=== PATIENT | male | born 1945 | race Caucasian/White ===

== ENCOUNTER → 2017-11-18 15:37 | Outpatient (CLI) | payer MEDICARE, OTHER, SELFPAY ==
[2017-11-18 17:05] LABS: Appearance Urine UA CLEAR; Bilirubin Urine UA NEGATIVE (NEGATIVE); Color Urine UA YELLOW; Glucose Urine UA NEGATIVE (Normal); Ketones Urine UA NEGATIVE (NEGATIVE); Leukocyte Esterase Urine UA 1+ (NEGATIVE); Nitrite Urine UA NEGATIVE (NEGATIVE); Occult Blood Urine UA 1+ (Negative); Protein Urine UA 1+ (Negative); Specific Gravity Urine UA 1.025 (1.000-1.035); Urobilinogen Urine UA 0.2 E.U./dL (0.2); pH Urine UA 5.5 (4.5-8.0)
[2017-11-18 17:25] LABS: Bacteria Urine Occasional (0-1); RBC Urine 5-10/HPF (0-5/HPF); Squamous Epithelial Cell Urine None Seen; WBC Urine 10-30/HPF (0-5/HPF)
== END ==
PROVIDERS: Family Provider Family Medicine; PCP Family Medicine; Visit Provider Family Medicine
DX: R30.0 Dysuria (principal)
CPT/HCPCS: 81001

== ENCOUNTER → 2017-12-16 15:01 | Outpatient (CLI) | payer MEDICARE, OTHER, SELFPAY ==
[2017-12-16 15:46] LABS: Add Manual Diff / Slide Review NO; Basophils Percent Auto 0.8 % (0-2); Hematocrit 42.6 % (41-53); Hemoglobin 14.6 g/dL (13.5-17.5); Lymphocytes Percent Auto 15.7 % (25-40); Mean Corpuscular HGB Conc 34.2 % (30-36); Mean Corpuscular Hemoglobin 31.5 PG (26-34); Mean Corpuscular Volume 92.2 fL (80-100); Monocytes Percent Auto 5.5 % (3-14); Neutrophils Absolute Auto 6100 /uL (3000-5900); Platelet Count 231 X10^3/uL (150-400); Red Blood Cell Count 4.62 X10^6/uL (4.5-5.9); Red Cell Distribution Width 14.2 % (11.6-14.8); White Blood Cell Count 8.1 X10^3/uL (4.5-11.0)
[2017-12-16 17:31] LABS: Alanine Aminotransferase 46 IU/L (21-72); Albumin Globulin Ratio 1.4 (1.0-2.8); Alkaline Phosphatase 67 U/L (38-126); Aspartate Aminotransferase 39 IU/L (17-59); BUN Creatinine Ratio 25.7 (6-22); Bilirubin Total 0.6 mg/dL (0.2-1.3); Blood Urea Nitrogen 18 mg/dL (9-20); Calcium 9.5 mg/dL (8.4-10.2); Carbon Dioxide 28 mmol/L (22-32); Chloride 104 mmol/L (98-107); Estimated Glomerular Filt Rate > 60.0 mL/min (>60); Globulin 2.8 g/dL (1.7-4.1); Glucose 101 mg/dL (80-110); HEMOLYSIS < 15 (0-50); Potassium 4.6 mmol/L (3.4-5.1); Sodium 143 mmol/L (137-145); Total Protein 6.8 g/dL (6.3-8.2)
[2017-12-16 18:00] LABS: TSH w/ Reflex to FT4 1.14 uIU/mL (0.47-4.68)
[2017-12-20 14:28] LABS: Parathyroid Hormone Int 31 pg/mL (14-64)
== END ==
PROVIDERS: Family Provider Family Medicine; PCP Family Medicine; Visit Provider Family Medicine
DX: R63.4 Abnormal weight loss (principal)
CPT/HCPCS: 36415; 80053; 83970; 84443; 85025

== ENCOUNTER → 2017-12-29 11:11 | Outpatient (CLI) | payer MEDICARE, OTHER, SELFPAY ==
--- NOTE | 2017-12-29 12:12 | DI.CT.S_ITS ---
PROCEDURE: CT CHEST ABD PEL W CON INDICATIONS: 72-year-old male with weight loss and remote gastric outlet obstruction. TECHNIQUE: After the administration of oral and intravenous contrast, 5 mm thick sections acquired from the lung apices to the symphysis. 5 mm coronal and sagittal reformats were performed, with additional 7 mm coronal MIP reformats through the lungs. For radiation dose reduction, the following was used: automated exposure control, adjustment of mA and/or kV according to patient size. COMPARISON: [facility], CR, XR CERVICAL SPINE 2 OR 3 VIEWS, 10/20/2017, 11:21. FINDINGS: Image quality: Metallic streak artifact from bilateral shoulder and right hip arthroplasty hardware, as well as cervical and lumbar spine fixation hardware, left chest wall pulse generator, obscure adjacent bony and soft tissue structures. CHEST: Lungs and pleura: No acute airspace opacities. No pleural effusions or pneumothorax. Central and peripheral airways appear patent and normal in caliber. Mediastinum: Heart size is normal, with moderate coronary artery atherosclerosis. No pericardial effusion. No mediastinal or hilar adenopathy by size criteria. Thoracic aorta and central pulmonary arteries are normal in size. Esophagus is normal in caliber. No hiatal hernia. Chest wall: No axillary or supraclavicular adenopathy by size criteria. Patient is status post multilevel cervical spine discectomies with anterior fixation. Lower end of the fixation plate is broken and posteriorly angulated. ABDOMEN: Solid organs: Liver is normal in size and enhancement. Gallbladder wall thickness is normal. Biliary system is non dilated. Pancreas enhances normally. Spleen is normal in size and enhancement. No adrenal nodules. Kidneys demonstrate normal size and enhancement, with mild left hydronephrosis. On axial image 108, 3 mm distal left ureteral stone is present. 3 nonobstructing right renal stones are also present, measuring up to 8 mm. Peritoneum and bowel: Bowel loops demonstrate normal wall thickness and caliber. No free fluid or air. Nodes and vessels: No retroperitoneal or mesenteric adenopathy by size criteria. Aorta and inferior vena cava are normal in size. Miscellaneous: No ventral hernias. PELVIS: Genitourinary: Bladder wall thickness is normal. Prostate gland is normal in size. Miscellaneous: No inguinal hernias or adenopathy. Bones: No suspicious bony lesions. No vertebral body compression fractures. There is multilevel lumbar and lower thoracic spine disc degeneration, status post L2-L5 discectomies with interbody fusion, L3-L5 bilateral posterior fixation, and L2-L4 laminectomies. Medial right iliac wing bone graft donor site is present. Patient is status post right hip arthroplasty. IMPRESSION: 1. No imaging explanation for weight loss. 2. 3 mm distal left ureteral stone causes mild left hydroureteronephrosis. 3. 3 additional nonobstructing renal stones measure up to 8 mm. 4. Inferior end of the cervical spine anterior fixation plate is broken as before. Dictated by: Baljit Martinez M.D. on 12/29/2017 at 13:05 Approved by: Baljit Martinez M.D. on 12/29/2017 at 13:41
== END ==
PROVIDERS: Family Provider Family Medicine; PCP Family Medicine; Visit Provider Family Medicine
DX: R63.4 Abnormal weight loss (principal); N13.2 Hydronephrosis with renal and ureteral calculous obstruction; N20.2 Calculus of kidney with calculus of ureter
CPT/HCPCS: 71260; 74177; Q9967

== ENCOUNTER → 2018-01-05 10:33 | Outpatient (CLI) | payer MEDICARE, OTHER, SELFPAY ==
--- NOTE | 2018-01-05 10:41 | DI.US.S_ITS ---
PROCEDURE: US CAROTID DOPPLER BI INDICATIONS: BALANCE DISORDER, WORD FINDING DIFFICULTY TECHNIQUE: Color and pulse Doppler interrogation was performed of both carotid systems, with image documentation and velocity measurements. COMPARISON: [facility], , CAROTID ARTERY DOPPLER [facility], 04/27/2016, 11:01. FINDINGS: Stenosis calculations are based on SRU (Society of Radiologists in Ultrasound) criteria. Right side: Brachial blood pressure: 151/69 mm Hg. Common carotid artery peak systolic velocity: 76 cm/sec. Internal carotid artery peak systolic velocity: 92 cm/sec. Internal carotid artery end diastolic velocity: 36 cm/sec. External carotid artery peak systolic velocity: 111 cm/sec. ICA/CCA peak systolic ratio: 1.2. Deleon scale imaging description: Moderate scattered plaque. Percent internal carotid artery stenosis: Less than 50%. Vertebral artery: Flow direction is antegrade. Left side: Brachial blood pressure: 141/77 mm Hg. Common carotid artery peak systolic velocity: 67 cm/sec. Internal carotid artery peak systolic velocity: 141 cm/sec. Internal carotid artery end diastolic velocity: 49 cm/sec. External carotid artery peak systolic velocity: 127 cm/sec. ICA/CCA peak systolic ratio: 2.1. Deleon scale imaging description: Moderate scattered plaque. Percent internal carotid artery stenosis: 50-69% stenosis. Vertebral artery: Flow direction is antegrade. IMPRESSION: 1. Mild progression of 50-69% left internal carotid artery stenosis. 2. No change in less than 50% right internal carotid artery stenosis. Dictated by: Gregorio Orr [facility] Interpreted: Deandre You MD on 01/05/2018 at 12:11 Approved by: Deandre You M.D. on 01/05/2018 at 13:27
== END ==
PROVIDERS: Family Provider Family Medicine; PCP Family Medicine; Visit Provider Family Medicine
DX: R26.89 Other abnormalities of gait and mobility (principal); R47.89 Other speech disturbances
CPT/HCPCS: 93880

== ENCOUNTER → 2018-02-23 15:19 | Outpatient (CLI) | payer MEDICARE, OTHER, SELFPAY ==
--- NOTE | 2018-02-23 15:23 | DI.RAD.S_ITS ---
PROCEDURE: XR CHEST 2V INDICATIONS: shortness of breath TECHNIQUE: 2 views of the chest were acquired. COMPARISON: [facility], CR, XR CHEST 1 VIEW, 01/25/2018, 21:46. FINDINGS: Surgical changes and devices: Bilateral humeral prosthesis, permanent pacemaker, postoperative changes upper lumbar spine and lower cervical spine as before. Lungs and pleura: No pleural effusions or pneumothorax. Lungs are clear. Mediastinum: Mediastinal contours are normal. Heart size is normal. Bones and chest wall: No suspicious bony abnormalities. Soft tissues appear unremarkable. IMPRESSION: No acute cardiopulmonary abnormality. Dictated by: Ryan Reno M.D. on 02/23/2018 at 16:49 Approved by: Ryan Reno M.D. on 02/23/2018 at 16:50
== END ==
PROVIDERS: Family Provider Family Medicine; PCP Family Medicine; Visit Provider Family Medicine
DX: R06.02 Shortness of breath (principal)
CPT/HCPCS: 71046

== ENCOUNTER → 2018-05-16 09:28 | Outpatient (CLI) | payer MEDICARE, OTHER, SELFPAY ==
[2018-05-16 10:45] LABS: Blood Urea Nitrogen 14 mg/dL (9-20); Carbon Dioxide 29 mmol/L (22-32); Chloride 104 mmol/L (98-107); Estimated Glomerular Filt Rate > 60.0 mL/min (>60); Glucose 99 mg/dL (80-110); HEMOLYSIS < 15 (0-50); Potassium 3.9 mmol/L (3.4-5.1); Sodium 143 mmol/L (137-145)
== END ==
PROVIDERS: PCP Student in an Organized Health Care Education/Training Program; Visit Provider Urology
DX: R31.0 Gross hematuria (principal)
CPT/HCPCS: 36415; 80048

== ENCOUNTER → 2018-05-29 09:34 | Outpatient (CLI) | payer MEDICARE, OTHER, SELFPAY ==
--- NOTE | 2018-05-29 09:36 | DI.NM.S_ITS ---
PROCEDURE: NM GASTRIC EMPTYING STUDY RADIOPHARMACEUTICAL: 1.0 mCi Tc-99m sulfur colloid in an egg sandwich. INDICATIONS: Gastroparesis TECHNIQUE: A Tc-99m labeled sulfur colloid labeled egg sandwich or oatmeal was served to the patient. Anterior and posterior planar images of the abdomen were obtained at 0 minutes and 30 minutes, then at hourly intervals up to 4 hours. The patient was upright and ambulating during the interval. COMPARISON: None. FINDINGS: The stomach has normal size, morphology, and position. There is normal emptying of solid gastric contents from the stomach by visual inspection. No gastroesophageal reflux is visualized. The percentage of tracer retained at specific time points are as follows: Time point Percent gastric retention Normal range 30 minutes 66% 70% or more 1 hour 43% 30% to 90% 2 hours 16% 60% or less 3 hours under 1% 30% or less IMPRESSION: No sign of abnormal gastric isotope retention over the course of the study. Dictated by: Fidencio Albert M.D. on 05/29/2018 at 14:32 Approved by: Fidencio Albert M.D. on 05/29/2018 at 14:34
== END ==
PROVIDERS: PCP Student in an Organized Health Care Education/Training Program; Visit Provider Student in an Organized Health Care Education/Training Program
DX: K31.84 Gastroparesis (principal)
CPT/HCPCS: 78264; A9541

== ENCOUNTER → 2018-05-30 10:42 | Outpatient (CLI) | payer MEDICARE, OTHER, SELFPAY ==
--- NOTE | 2018-05-30 | DI.CT.S_ITS ---
PROCEDURE: CT ABDOMEN PELVIS WO/W CON INDICATIONS: GROSS HEMATURIA TECHNIQUE: Optional 5 mm thick noncontrast images acquired from the diaphragm to the symphysis pubis. After the administration of intravenous contrast, 5 mm thick images acquired from the diaphragm to the symphysis pubis after a 10-minute delay. 2 mm thick coronal and sagittal reformats were then performed of the kidneys and ureters. For radiation dose reduction, the following was used: automated exposure control, adjustment of mA and/or kV according to patient size. COMPARISON: None. FINDINGS: Image quality: Excellent. Lung bases: Lung bases are clear. Heart size is normal. Urinary system: Both kidneys are normal size. There are multiple nonobstructing calculi within the bilateral kidneys. The largest right stone measures 9 mm in diameter in the upper pole and the largest left stone measures 5 mm in the lower pole. No right hydronephrosis or perinephric fat stranding. There is mild left hydronephrosis and the left ureter is moderately dilated. Multiple 1-3 mm diameter calculi are present within the left ureter. There is likely a 1 mm calculus within the left ureterovesicular junction (series 2, image 60). No right ureteral calculi visualized. The bladder is partially fluid-filled. The post contrast study suggests a posterior left bladder mass versus inflammatory thickening at the left ureterovesicular junction (series 4, image 167). Other solid organs: Liver is normal in size and enhancement. Gallbladder is unremarkable. Biliary system is non dilated. Pancreas enhances normally. Spleen is normal in size and enhancement. No adrenal nodules. Peritoneum and bowel: Bowel loops demonstrate normal wall thickness and caliber. No free fluid or air. Nodes and vessels: No retroperitoneal or mesenteric adenopathy by size criteria. Aorta and inferior vena cava are normal in size. There are scattered atheromatous calcifications throughout the aorta and iliac arteries bilaterally. Abdominal wall: No ventral hernias. Pelvis: No pathologic free pelvic fluid. No inguinal hernias or adenopathy. Bones: No suspicious bony lesions. No vertebral body compression fractures. The severe degenerative change in posterior fixation is noted at the lumbosacral junction. Right hip arthroplasty is grossly intact. IMPRESSION: 1. Bilateral nephrolithiasis. 2. Multiple calculi within the left ureter with moderate hydroureter and mild hydronephrosis. 3. Questionable mass at the left ureterovesicular junction versus inflammatory changes as described above. Direct visualization recommended to exclude neoplasm. Dictated by: Kalyani Clark M.D. on 05/30/2018 at 14:02 Approved by: Kalyani Clark M.D. on 05/30/2018 at 14:15
== END ==
PROVIDERS: PCP Student in an Organized Health Care Education/Training Program; Visit Provider Urology
DX: N13.2 Hydronephrosis with renal and ureteral calculous obstruction (principal); R31.0 Gross hematuria
CPT/HCPCS: 74178; Q9967

== ENCOUNTER → 2018-09-13 10:32 | Outpatient (CLI) | payer MEDICARE, OTHER, SELFPAY ==
--- NOTE | 2018-09-13 | DI.US.S_ITS ---
PROCEDURE: US RENAL COMPLETE INDICATIONS: LEFT KIDNEY STONE TECHNIQUE: Real-time scanning was performed of the kidneys and bladder, with image documentation. COMPARISON: [facility], CT, CT ABDOMEN PELVIS WO/W CON, 05/30/2018, 10:49. FINDINGS: Kidneys: Right kidney: Normal in size,, measuring 11.2 cm. There are 3 stones identified. The largest stone measures 1.5 x 0.7 x 1.0 cm. No stone is obstructing. No hydronephrosis. No suspicious solid mass lesions. Right kidney: Normal size, 9.6 cm. No hydronephrosis. 4 nonobstructing stones seen. The largest stone identified is 0.9 x 0.9 x 1.0 cm. No suspicious solid masses. Bladder: Decompressed. Miscellaneous: No free pelvic fluid. IMPRESSION: Multiple bilateral nonobstructing renal stones as described above. No hydronephrosis. Dictated by: Shantanu Frank M.D. on 09/13/2018 at 12:41 Approved by: Shantanu Frank M.D. on 09/13/2018 at 12:46
== END ==
PROVIDERS: PCP Student in an Organized Health Care Education/Training Program; Visit Provider Urology
DX: N20.0 Calculus of kidney (principal)
CPT/HCPCS: 76770

== ENCOUNTER → 2018-09-19 09:22 | Outpatient (CLI) | payer MEDICARE, OTHER, SELFPAY ==
--- NOTE | 2018-09-19 | DI.US.S_ITS ---
PROCEDURE: US CAROTID DOPPLER BI INDICATIONS: BILATERAL CAROTID ARTERY STENOSIS TECHNIQUE: Color and pulse Doppler interrogation was performed of both carotid systems, with image documentation and velocity measurements. COMPARISON: [facility], US, US CAROTID DOPPLER BI, 01/05/2018, 11:23. FINDINGS: Stenosis calculations are based on SRU (Society of Radiologists in Ultrasound) criteria. Right side: Brachial blood pressure: 142/79 mm Hg. Common carotid artery peak systolic velocity: 61 cm/sec. Internal carotid artery peak systolic velocity: 76 cm/sec. Internal carotid artery end diastolic velocity: 26 cm/sec. External carotid artery peak systolic velocity: 75 cm/sec. ICA/CCA peak systolic ratio: 1.2. Deleon scale imaging description: Mild scattered plaque. Percent internal carotid artery stenosis: Less than 50% stenosis. Vertebral artery: Flow direction is antegrade. Left side: Brachial blood pressure: 143/79 mm Hg. Common carotid artery peak systolic velocity: 62 cm/sec. Internal carotid artery peak systolic velocity: 119 cm/sec. Internal carotid artery end diastolic velocity: 41 cm/sec. External carotid artery peak systolic velocity: 152 cm/sec. ICA/CCA peak systolic ratio: 1.9. Deleon scale imaging description: Mild scattered plaque. Percent internal carotid artery stenosis: Less than 50% stenosis. Vertebral artery: Flow direction is antegrade. IMPRESSION: Less than 50% bilateral internal carotid artery stenosis. Dictated by: Gregorio Orr [facility] Interpreted: Aris Cordoba MD on 09/19/2018 at 16:15 Approved by: Aris Cordoba M.D. on 09/19/2018 at 18:10
== END ==
PROVIDERS: PCP Student in an Organized Health Care Education/Training Program; Visit Provider Internal Medicine Cardiovascular Disease
DX: I65.23 Occlusion and stenosis of bilateral carotid arteries (principal)
CPT/HCPCS: 93880

== ENCOUNTER → 2018-11-22 09:27 | Outpatient (CLI) | payer MEDICARE, OTHER, SELFPAY ==
[2018-11-22 10:44] LABS: Hematocrit 41.5 % (41-53); Hemoglobin 13.7 g/dL (13.5-17.5); Mean Corpuscular Hemoglobin 31.7 PG (26-34); Mean Corpuscular Volume 96.1 fL (80-100); Platelet Count 121 X10^3/uL (150-400); Red Blood Cell Count 4.31 X10^6/uL (4.5-5.9); Red Cell Distribution Width 15.2 % (11.6-14.8); White Blood Cell Count 4.8 X10^3/uL (4.5-11.0)
[2018-11-22 10:51] LABS: INR 1.4 (0.9-1.3)
[2018-11-22 10:57] LABS: BUN Creatinine Ratio 17.1 (6-22); Blood Urea Nitrogen 12 mg/dL (9-20); Carbon Dioxide 29 mmol/L (22-32); Chloride 105 mmol/L (98-107); Estimated Glomerular Filt Rate > 60.0 mL/min (>60); Glucose 99 mg/dL (80-110); HEMOLYSIS < 15 (0-50); Sodium 140 mmol/L (137-145)
[2018-11-25 14:08] LABS: Testosterone Free 15.9 pg/mL (30.0-135.0); Testosterone Total 311 ng/dL (250-1100)
== END ==
PROVIDERS: PCP Student in an Organized Health Care Education/Training Program; Visit Provider Student in an Organized Health Care Education/Training Program
DX: G25.0 Essential tremor (principal); N20.0 Calculus of kidney; M11.20 Other chondrocalcinosis, unspecified site; M19.90 Unspecified osteoarthritis, unspecified site; N52.9 Male erectile dysfunction, unspecified; Z79.01 Long term (current) use of anticoagulants
CPT/HCPCS: 36415; 80048; 84402; 84403; 85027; 85610

== ENCOUNTER → 2019-05-02 13:08 | Outpatient (CLI) | payer MEDICARE, OTHER, SELFPAY ==
--- NOTE | 2019-05-02 | DI.ECHO.S_ITS ---
[place] [facility]---------+ [facility] +---------+ : : [address] : : : : [id number] : : : : Phone: [phone] Echocardiogram Report + + :Name: WANDA VASQUEZ Study Date: 05/02/2019 Height: 66 in : :[facility] Weight: 141 lb : : Gender: Male BSA: 1.7 m2 : :: 1945 Age: 73 yrs BP: 104/60 mmHg: :Reason For Study: SHORTNESS OF BREATH : : Performed By: Shashi Hutchison : :Referring: ELISHA PALACIOS : + + Interpretation Summary Left ventricular systolic function is low normal with the ejection fraction visually estimated to be 50-55%. There is a mild dyssynchronous contraction pattern due to the paced rhythm and borderline global hypokinesis but no focal wall motion abnormalities. Diastolic parameters suggest a relaxation abnormality of the left ventricle, consistent with probable normal filling pressures. The right ventricle is normal in size and function. Pulmonary artery pressures cannot be estimated because of the lack of a measurable TR jet velocity but the IVC suggests a CVP of around 3 mmHg. The left atrium is mildly dilated. There is mild mitral regurgitation and mild aortic regurgitation but no other significant valvular heart disease. The ascending aorta is mild-moderately enlarged. Procedure: A two-dimensional transthoracic echocardiogram with color flow and Doppler was performed. The study quality was technically adequate. There is no prior echocardiogram noted for this patient. The patient has a paced rhythm. Left Ventricle: The left ventricle is normal in size. There is normal left ventricular wall thickness. Left ventricular systolic function is low normal. The ejection fraction is estimated to be 50-55%. There is a mild dyssynchronous contraction pattern due to the paced rhythm. There is borderline global hypokinesis of the left ventricle. There are no focal wall motion abnormalities. Diastolic parameters suggest a relaxation abnormality of the left ventricle, consistent with probable normal filling pressures. Right Ventricle: The right ventricle is normal in size and function. Atria: The left atrium is mildly dilated. Right atrial size is normal. There is a catheter/pacemaker lead seen in the right atrium. The interatrial septum is intact with no evidence for an atrial septal defect. Mitral Valve: The mitral valve is normal in structure and function. There is mild mitral regurgitation. Aortic Valve: The aortic valve is trileaflet. The aortic valve is slightly calcified. The aortic valve opens well. There is mild aortic regurgitation. Tricuspid Valve: The tricuspid valve is normal in structure and function. There is trace tricuspid regurgitation. Pulmonary artery pressures cannot be estimated because of the lack of a measurable TR jet velocity but the IVC suggests a CVP of around 3 mmHg. Pulmonic Valve: The pulmonic valve is not well seen, but is grossly normal. There is trace pulmonic regurgitation. There is no other significant valvular heart disease. Great Vessels: The aortic root is borderline dilated. The ascending aorta is mild-moderately enlarged. The pulmonary artery is normal size. The IVC is of normal diameter and collapses greater than 50% with a sniff. This suggests a low right atrial pressure of 3 mm Hg. Pericardium/ Pleura There is no pericardial effusion. There is no pleural effusion. MMode/2D Measurements & Calculations LVIDd: 4.5 cm LVOT diam: 2.3 cm LVIDs: 3.3 cm Ao root diam: 3.7 cm FS: 27.3 % Aortic Jxn: 3.1 cm EPSS: 0.97 cm asc Aorta Diam: 3.9 cm IVSd: 0.98 cm Ao Arch Diam (Prox Trans): 2.8 cm LVPWd: 0.90 cm LV stovall. diameter/BSA (cm/m^2): 2.6 LV sys. diameter/BSA (cm/m^2): 1.9 LA dimension: 2.9 cm RA long axis: 4.9 cm LA A2 area: 22.2 cm2 RA area: 15.5 cm2 LA A4 area: 16.5 cm2 RA vol: 41.5 ml LA length (vol): 4.9 cm RA : 24.1 ml/m2 LA vol: 63.5 ml IVC diam: 1.7 cm LA vol index: 36.8 ml/m2 TAPSE: 2.1 cm Doppler Measurements & Calculations Ao V2 max: 115.6 cm/sec LVOT Max Clark: 79.5 cm/sec Ao V2 mean: 84.4 cm/sec LV V1 max P.5 mmHg Ao max P.3 mmHg LV V1 VTI: 18.9 cm Ao mean P.1 mmHg AURELIO(I,D): 3.1 cm2 Ao V2 VTI: 25.7 cm AURELIO(V,D): 2.9 cm2 sev ratio: 0.73 AURELIO indexed to BSA (cm^2/m^2): 1.8 MV E max clark: 47.6 cm/sec TR max clark: 182.1 cm/sec MV A max clark: 85.2 cm/sec TR max P.3 mmHg MV E/A: 0.56 PA V2 max: 87.1 cm/sec Med Peak E' Clark: 4.1 cm/sec PA V2 mean: 56.6 cm/sec E/E' med: 11.5 PA mean P.5 mmHg Lat Peak E' Clark: 6.0 cm/sec PA pr(Accel): 44.1 mmHg E/E' lat: 7.9 PA Accel Time: 0.07 sec E/e' average: 9.7 MV dec time: 0.26 sec SV(LVOT): 78.5 ml Reading Physician:CINTHYA
== END ==
PROVIDERS: PCP Student in an Organized Health Care Education/Training Program; Visit Provider Internal Medicine Cardiovascular Disease
DX: I08.0 Rheumatic disorders of both mitral and aortic valves (principal); R07.89 Other chest pain; R06.02 Shortness of breath; I77.89 Other specified disorders of arteries and arterioles
CPT/HCPCS: 93306

== ENCOUNTER → 2019-05-21 09:02 | Outpatient (CLI) | payer MEDICARE, OTHER, SELFPAY ==
--- NOTE | 2019-05-21 09:40 | DI.CT.S_ITS ---
PROCEDURE: CT ANGIO HEAD AND NECK INDICATIONS: TIA, vertebrobasilar insufficiency TECHNIQUE: Pre-contrast 4.5 mm thick sections acquired from the foramen magnum to the vertex. After the administration of intravenous contrast, 1 mm thick sections acquired from the aortic arch through the [place]. Post-contrast 4.5 mm thick sections then re-acquired from the foramen magnum to the vertex. 3-dimensional gfuduga-pmetdwdud-mijjfvxkdm (MIP) and/or volume rendering reformats were acquired of the central intracranial vasculature and neck separately. COMPARISON: [facility], , CAROTID DOPPLER BI, 09/19/2018, 9:36. FINDINGS: Image quality: Excellent. BRAIN: CSF spaces: Ventricles are normal in size and shape. Basal cisterns are patent. No extra-axial fluid collections. Brain: No midline shift. No intracranial bleeds or masses. Deleon-white matter interface appears intact. Skull and face: Calvarium and facial bones appear intact, without suspicious lesions. Orbits appear normal. Sinuses: Sinuses and mastoids are clear. HEAD CT ANGIOGRAPHY: Anterior circulation: Intracranial internal carotid arteries are normal in flow. Atherosclerotic calcifications noted in the cavernous and clinoid segments of the internal carotid arteries bilaterally which cause mild multifocal stenoses. The flow within the paired anterior cerebral arteries is normal and symmetric. The flow within the middle cerebral arteries is normal and symmetric. The anterior communicating artery is seen. No aneurysms are seen. Posterior circulation: Visualized portions of the vertebral arteries demonstrate normal flow and join to form a normal appearing basilar artery. Atherosclerotic calcification noted in the proximal V4 segment of the right vertebral artery causes a moderate, short segment stenosis. Flow within the posterior cerebral arteries is normal and symmetric. The posterior cerebral arteries have origins bilaterally. No aneurysms are seen. Dural sinuses demonstrate normal postcontrast enhancement. NECK CT ANGIOGRAPHY: Carotid system: The great vessels demonstrate a conventional anatomy as they arise from the aortic arch. The origins of the common carotid arteries appear patent. The common carotid arteries demonstrate normal caliber and courses. Calcified and soft atherosclerotic plaque noted in the origins of the internal carotid arteries bilaterally which causes less than 50% stenosis of the vessels. Posterior circulation: The origins of the vertebral arteries are poorly visualized due to beam hardening artifact related to patient's shoulders and cardiac pacer in the left chest wall. The more superior extracranial portions of both vertebral arteries also demonstrate normal courses and calibers. They join to form a normal appearing basilar artery. Soft tissues: Visualized neck soft tissues demonstrate no suspicious abnormalities. Bones: No suspicious bony lesions. The postsurgical changes compatible with C3-T1 ACDF. Visualized cervical spine appears normally aligned. IMPRESSION: 1. No acute intracranial disease process. 2. No large vessel occlusion, hemodynamically significant stenosis, vascular dissection or aneurysm. 3. Less than 50% stenosis of the origins of the internal carotid arteries bilaterally. 4. Multifocal, mild atherosclerotic stenoses involving the cavernous and clinoid segments of the internal carotid arteries bilaterally. 5. Focal, short segment moderate atherosclerotic stenosis involving the proximal V4 segment of the right vertebral artery. 6. Origins of the vertebral arteries are suboptimally visualized. Any quantitative measurements of stenosis were performed using NASCET criteria. Dictated by: Sophie Coyle MD, PhD on 05/21/2019 at 12:03 Approved by: Sophie Coyle MD, PhD on 05/21/2019 at 12:21
== END ==
PROVIDERS: PCP Student in an Organized Health Care Education/Training Program; Visit Provider Student in an Organized Health Care Education/Training Program
DX: G45.9 Transient cerebral ischemic attack, unspecified (principal); G45.0 Vertebro-basilar artery syndrome
CPT/HCPCS: 70496; 70498; Q9967

== ENCOUNTER → 2020-05-15 09:35 | Outpatient (CLI) | payer MEDICARE, OTHER, SELFPAY ==
--- NOTE | 2020-05-15 | DI.NM.S_ITS ---
PROCEDURE: NM BONE SCAN WHOLE BODY RADIOPHARMACEUTICAL: 19.7 mCi Tc-99m MDP IV. INDICATIONS: RIGHT HIP AND BOTH SHOULDERS ARTIFICIAL TECHNIQUE: Delayed whole-body scintigrams were obtained approximately 3-4 hours after intravenous injection of radiotracer. Anterior and posterior views were acquired from vertex to feet. Additional left and right oblique views of the neck and chest/abdomen and pelvis were obtained. COMPARISON: [facility], CR, PELVIS 1 OR 2 VIEWS, 02/25/2015, 14:59. [facility], CR, XR CHEST 2V, 02/23/2018, 15:38. [facility], CR, XR LUMBAR SPINE 2 OR 3 VIEWS, 12/14/2019, 11:08. [facility], CR, XR LUMBAR SPINE 2 OR 3 VIEWS, 05/07/2020, 9:35. FINDINGS: Prior bilateral humeral arthroplasty devices are noted, showing mild adjacent elevated isotope deposition at each glenoid fossa. Additionally there is symmetric slrg-[id number] osteoarthritic change at the acromioclavicular joints. Also noted is a arthroplasty device at the right hip, and none of these devices show evidence of loosening or disruption. No adjacent infection is suspected. With reference to the lumbosacral spine plain film imaging prior lumbar fusion procedures have been performed. The T12 level vertebral body shows a transverse band of elevated isotope deposition, indicating likelihood of a mild compression fracture at that site. This is well distant from adjacent fixation devices. IMPRESSION: The isotope deposition pattern at the shoulders bilaterally and the right hip show no evidence of loosening or adjacent infection. A transverse band of increased isotope deposition involves the T12 vertebral body and reference to the prior lumbosacral spine plain films suggest that a mild superior endplate compression fracture is the underlying cause of this appearance. Dictated by: Fidencio Albert M.D. on 05/15/2020 at 15:46 Approved by: Fidencio Albert M.D. on 05/15/2020 at 15:56
== END ==
PROVIDERS: PCP Student in an Organized Health Care Education/Training Program; Referring Provider Orthopaedic Surgery; Visit Provider Orthopaedic Surgery
DX: M25.551 Pain in right hip (principal); R10.30 Lower abdominal pain, unspecified; Z96.641 Presence of right artificial hip joint; Z96.612 Presence of left artificial shoulder joint; Z96.611 Presence of right artificial shoulder joint; Z98.1 Arthrodesis status
CPT/HCPCS: 78306; A9503

== ENCOUNTER → 2020-07-10 14:52 | Outpatient (CLI) | payer MEDICARE, OTHER, SELFPAY ==
--- NOTE | 2020-07-10 14:58 | DI.RAD.S_ITS ---
PROCEDURE: XR LUMBAR SPINE 2-3V INDICATIONS: back pain TECHNIQUE: 3 views of the lumbar spine were acquired. COMPARISON: [facility], [place], XR LUMBAR SPINE 2 OR 3 VIEWS, 05/07/2020, 9:35. FINDINGS: Bones: No fracture. Levoscoliosis. Multilevel degenerative endplate sclerosis and spurring. Diffuse facet arthropathy. Postsurgical changes related to interbody cage graft at L2-L3, and posterior spinal fixation from L3-L5 with paraspinal will and pedicle screws, with intervening cage grafts. Grade 1 retrolisthesis of L2 on L3 and L3 on L4. Grade 1 anterolisthesis of L4 on L5. Severe T10-T11 disc space narrowing. There is moderate lower thoracic and lumbar disc space narrowing elsewhere Soft tissues: Overlying bowel gas pattern is normal. No suspicious soft tissue calcifications. IMPRESSION: Postsurgical and degenerative changes as above. No interval change Dictated by: Deandre You M.D. on 07/10/2020 at 15:18 Approved by: Deandre You M.D. on 07/10/2020 at 15:21
== END ==
PROVIDERS: PCP Student in an Organized Health Care Education/Training Program; Referring Provider Physician Assistant Medical; Visit Provider Physician Assistant Medical
DX: M54.40 Lumbago with sciatica, unspecified side (principal); M47.816 Spondylosis without myelopathy or radiculopathy, lumbar region; M43.16 Spondylolisthesis, lumbar region
CPT/HCPCS: 72100

== ENCOUNTER → 2020-08-13 12:55 | Outpatient (CLI) | payer MEDICARE, OTHER, SELFPAY ==
--- NOTE | 2020-08-13 12:56 | DI.RAD.S_ITS ---
PROCEDURE: FL BARIUM SWALLOW W SPEECH INDICATIONS: Chokes on liquids COMPARISON: None. TECHNIQUE: Examination was conducted in conjunction with speech pathology per standard protocol. In the lateral projection, filming was performed of the patient swallowing. AP projection filming may also be performed with patient swallowing. COMPARISON: FINDINGS: Function: The oral preparatory phase appears normal, with proper containment. The subsequent oral propulsive phase, pharyngeal phase, and esophageal phase of swallowing also appear normal with all proffered substances. No laryngotracheal penetration or aspiration. No pathologic vallecular pooling. Morphology: No cricopharyngeal bar is identified. No cervical esophageal webs. No Zenker's diverticulum. No strictures. IMPRESSION: Aspiration was not observed. Please refer to the dedicated speech therapy swallowing evaluation report which will be independently generated. Note is made of relatively extensive spine fusion surgery but no point of impingement on the proximal esophagus was observed and on frontal view imaging abnormal significant deviation of the barium column during swallowing was found. Dictated by: Fidencio Albert M.D. on 08/13/2020 at 14:55 Approved by: Fidencio Albert M.D. on 08/13/2020 at 14:58
--- NOTE | 2020-08-14 12:19 | ST.SWALLOW ---
Visit Care Team Role Provider Type Deep Dao MD Attending Provider Physician Primary Care Provider Referring Provider Specialty: Internal Medicine Address: [address] [place] [address], [address], [place], [address] Email: [email or web address] Modified Barium Swallow Study PUBLIC RELATIONS ASSISTANT Modified Barium Swallow Study Start: 08/13/20 17:14 Freq: Status: Active Protocol: Document 08/13/20 17:15 LL (Rec: 08/13/20 17:26 LL [id number]) Modified Barium Swallow Study Total Time Visit Start Time 13:30 Visit Stop Time 14:30 Total Visit Minutes 60 Referral Referring Physician Deep Dao MD Reason for Referral Dysphagia, unspecified Setting Setting Outpatient Care Patient Information Identification Type Name,Date of Patient History Jaspreet Tobin, a 74-year-old male, was seen for an outpatient Modified Barium Swallow Study (MBSS) today per his primary care provider ( PCP) order due to concerns for dysphagia. Per chart review, patient with PMHx significant for peripheral neuropathy, atrial fibrillation, essential tremor, CAD, carotid artery stenosis, s/p coronary artery stent placement, herniated disc (2013), essential hypertension (05/05/2015), history of TIA with word finding difficulty (2018), history of unintentional weight loss, history of laminectomy (e.g., L5-S1-1971 , C5-C6-1086, L2-L3-1996, C4- C5-2015), s/p cervical discectomy and fusion of C3-C4 , history of shoulder replacement, and s/p placement of cardiac pacemaker. Per most recent visit with PCP , patient reported gradually worsening problems with swallowing, especially with pills and has experienced choking episodes on thick liquids as well. Patient reported that he received a Modified Barium Swallow Study (MBSS) around 3 years ago at [facility] and demonstrated a ?shelf? in his throat. Since MBSS at [facility], patient has implemented recommended PO precautions such as small bites / sips, however, continues to experience choking and intermittent episodes of nasal regurgitation. Patient reported that he is now extremely cautious with eating and drinking (e.g., masticates solids x 30-50 times before swallowing, takes very small bites / sips). Lastly, patient reported that he has had numerous surgeries over the last 20 years, all of which have required intubation. Subjective Observations Patient arrived on time, unaccompanied for today's study. Patient alert, oriented x 4, and denied any pain / discomfort throughout study. Patient Positioning Position View Lat-A/P Imaging Lateral View Textures Administered Trials Presented Thin Liquid via Spoon,Thin Liquid via Cup,Thin Liquid via Straw,[place] Liquid via Cup, Honey Liquid via Spoon,Pudding Thick Liquid via Spoon, Dysphagia Mechanical Textures, Regular Textures,Barium Tablet Oral Phase Source: MBSIMP (TM) (C) Bolus Specific Scoring Grid Lip Closure No Impairment (WNL) Tongue Control During Bolus Hold No Impairment (WNL) Bolus Prep/Mastication No Impairment (WNL) Bolus Transport/Lingual Motion No Impairment (WNL) A/P Lingual Propulsion Delay No Oral Residue WFL Residue Clearing WFL Nasal Regurgitation No: Patient reported history of intermittent episodes of nasal regurgitation Additional Oral Phase Observations Adequate labial seal with no anterior loss or difficulty with labial acceptance, oral bolus containment/control (e.g ., 10mL of thin liquid - no unintentional spillage in the lateral buccal sulci or into the pharynx), AP transfer of bolus, oral clearance of bolus , and mastication. Pharyngeal Phase Source: MBSIMP (TM) (C) Bolus Specific Scoring Grid Delayed Initiation of Pharyngeal Swallow No Soft Palate Elevation WFL Tongue Base Strength/Range of Motion WFL Residue Along the Tongue Base Yes: minimal tongue base residue with thicker consistencies Clearance of Residue Along Tongue Base WFL Laryngeal Elevation Mild Impairment Anterior Hyoid Movement WFL Epiglottic Range of Motion WFL Vallecular Residue Yes: minimal-mild with thin liquids , mild with thicker consistencies Clearance of Vallecular Residue WFL Laryngeal Vestibular Closure WFL Pharyngeal Stripping Wave WFL Pharyngeal Contraction WFL Posterior Pharyngeal Wall Residue Yes: minimal with thin liquids via straw and thicker consistencies Clearance of Posterior Pharyngeal Wall WFL Residue Upper Esophageal Sphincter Opening WFL Residue in the Pyriform Sinuses Yes: minimal-mild with thin liquids , mild with thicker consistencies Clearance of Residue in the Pyriform WFL Sinuses Pharyngoesophageal Backflow Observed No Additional Pharyngeal Phase Observations Timely trigger of the pharyngeal swallow, as determined by location of the head of the bolus at the moment of the initial hyoid burst. Pharyngeal triggered occurred at the level of the valleculae across all consistencies. 10mL of thin liquid resulted in minimal vallecular residue which patient independently cleared with use of second dry swallow . Thin liquid via cup resulted in trace vallecular and pyriform residue which patient independently cleared with use of second dry swallow. Thin liquid via straw resulted in increased vallecular and pyriform residue as compared to thin liquid via cup, which cleared with use of second dry swallow (e.g., cued by clinician). [place] and honey via cup resulted in mild vallecular residue and trace pyriform and posterior pharyngeal wall (PPW) residue, which patient independently cleared with use of second dry swallow. Dysphagia mechanical and regular solid trials resulted in minimal tongue base residue and mild vallecular residue, which patient independently cleared with use of second dry swallow . Thin liquid via cup following regular solid trial resulted in flash penetration above the level of the vocal folds during the swallow. Reduced laryngeal elevation visualized across all consistencies resulting in minimal-mild amounts of pharyngeal residue post- swallow. No aspiration or penetration without clearance visualized across all consistencies. A/P View Textures Administered Trials Presented Thin Liquid via Cup,Barium Tablet A/P View Observations Pharyngeal Contraction WFL Esophageal Observations Esophageal Function Please see the radiologist's report for more detailed information. Esophageal function appeared within functional limits (WFL) with thin liquid and thin liquid with barium tablet trials. Clinical Impressions Dysphagia Type Mild pharyngeal dysphagia Findings The patient currently presents with a functional oral swallow phase and mild pharyngeal dysphagia characterized by reduced laryngeal elevation resulting in minimal-mild pharyngeal residue post-swallow across all consistencies, decreasing airway protection after the swallow. The patient is a mild aspiration risk due to above listed deficits. Risk mitigated given adherence to diet recommendations and PO precautions. Rehabilitation Potential Excellent Patient Appropriate for Therapy Yes Recommendations Diet Liquids Order Thin Diet Order Regular Medication Recommendation As Tolerated,One at a Time Comments Added moisture with meals (e.g ., sauce, gravy) Additional Dietary Needs Single Sips,Controlled Sips,No Straws Aspiration Precautions Recommended Precautions Upright at 90 Degrees,Small Bites/Sips,Effortful Swallow, Double Swallow,Liquids from Cup Treatment Plan Therapy Recommendations Outpatient Speech Therapy, Compensatory Strategy Education Additional Therapy Recommendations Laryngeal / pharyngeal exercises to improve laryngeal elevation. Recommended Referrals Primary Care Physician,ENT Consult Compensatory Strategies Recommendations Sitting Upright (90 deg), Double Swallow,No Straw, Liquids from Cup,Small Bites and Sips Additional Compensatory Strategies Slow intake rate and effortful Recommended swallow Additional Recommendations/Comments ENT consult to visualize vocal folds due to multiple intubations over last 20 years and raspy/harsh vocal quality . Potential voice treatment pending ENT results. Recommend outpatient dysphagia treatment to improve laryngeal elevation and provide additional dysphagia training/education (e.g., further review MBSS results, diet recommendations, PO precautions, laryngeal/ pharyngeal exercises). PUBLIC RELATIONS ASSISTANT extensively reviewed MBSS results, diet recommendations, PO precautions, ENT consult recommendation, and recommendation for outpatient speech therapy with patient after swallow study to ensure adequate understanding of information and agreement with plan of care (POC). PUBLIC RELATIONS ASSISTANT provided patient with written handout listing diet recommendations and PO precautions as well. Patient verbalized understanding and agreement with plan.
== END ==
PROVIDERS: PCP Student in an Organized Health Care Education/Training Program; Referring Provider Student in an Organized Health Care Education/Training Program; Visit Provider Student in an Organized Health Care Education/Training Program
DX: R13.10 Dysphagia, unspecified (principal); Z98.1 Arthrodesis status
CPT/HCPCS: 74230; 92526; 92611

== ENCOUNTER 2021-03-09 09:33 | Emergency (ER) | payer MEDICARE, OTHER, SELFPAY ==
[2021-03-09 09:44] VITALS: PULSE 60; O2SAT 99
[2021-03-09 09:45] VITALS: BP 178/89; PULSE 58; RESP 16; TEMP 36.2; O2SAT 99; BMI 25.0
--- NOTE | 2021-03-09 09:51 | DI.CT.S_ITS ---
PROCEDURE: CT CERVICAL SPINE WO CON INDICATIONS: fall on thinners TECHNIQUE: Noncontrast 3 mm thick sections acquired from the skull base to the T4 level. Sagittal and coronal reformats were then constructed. For radiation dose reduction, the following was used: automated exposure control, adjustment of mA and/or kV according to patient size. COMPARISON: [facility], CT, CT HEAD/BRAIN WO CON, 03/09/2021, 9:57. [facility], CT, CT ANGIO HEAD AND NECK, 11/26/2020, 12:01. FINDINGS: Image quality: There is streak artifact seen through the shoulders. Bones: No fractures or dislocations. Visualized superior ribs are intact. Postoperative changes are seen, with an anterior disc fusion device at the C3-C4 level. At least moderate central canal narrowing can be seen at C3-C4. Mild grade 1 C3-C4 anterolisthesis is seen. Anterior fixation hardware is seen C4 through T1. No findings of hardware failure or hardware loosening are seen. Focal degenerative change is seen involving the C1-C2 interface anteriorly. Grade 1 anterolisthesis is seen at C3-C4 and at C7-T1. Soft tissues: Prevertebral soft tissues are normal in thickness. No paravertebral hematomas. No apical pneumothoraces. Left-sided pacer leads are seen. Atherosclerotic calcification is noted. IMPRESSION: Negative for acute fracture. Underlying postoperative and degenerative changes are seen. Dictated by: Chico Fragoso M.D. on 03/09/2021 at 9:41 Approved by: Chico Fragoso M.D. on 03/09/2021 at 9:44
--- NOTE | 2021-03-09 09:51 | DI.CT.S_ITS ---
PROCEDURE: CT HEAD/BRAIN WO CON INDICATIONS: fall on thinners TECHNIQUE: Noncontrast 4.5 mm thick angled axial sections acquired from the foramen magnum to the vertex, with coronal and sagittal reformats. For radiation dose reduction, the following was used: automated exposure control, adjustment of mA and/or kV according to patient size. COMPARISON: [facility], CT, CT ANGIO HEAD AND NECK, 11/26/2020, 12:01. [facility], CT, HEAD WITHOUT CONTRAST, 09/29/2017, 17:18. FINDINGS: Image quality: Excellent. CSF spaces: Basal cisterns are patent. No extra-axial fluid collections. The ventricles are symmetric in size and shape. Brain: No intracranial bleeds or masses. There is cerebral volume loss for age, with resultant ventricular and sulcal prominence. There are periventricular and deep white matter chronic small vessel ischemic changes. There is intracranial internal carotid artery atherosclerosis. Skull and face: Calvarium and visualized facial bones appear intact, without suspicious lesions. Sinuses: Visualized sinuses and mastoids are clear. IMPRESSION: No acute intracranial hemorrhage is seen. No acute intracranial process is seen. Dictated by: Chico Fragoso M.D. on 03/09/2021 at 9:10 Approved by: Chico Fragoso M.D. on 03/09/2021 at 9:11
--- NOTE | 2021-03-09 09:58 | ED_ITS ---
HPI - Neck Pain/Injury General Chief Complaint: Trauma Stated Complaint: Fell on fri-neck pain Time Seen by Provider: 03/09/21 09:52 History of Present Illness HPI Narrative: Patient is a 75-year-old male history of atrial fibrillation, coronary artery disease apparently on warfarin and Plavix presenting today after ground level fall 3 days ago. He said he was on the ground trimming a sure of which had a very large trunk, he had a chainsaw in hand he somehow lost his balance fell forward hitting his head. Change son did not cause any injury. He did not lose consciousness. He has not had any nausea or vomiting. He has chronic ongoing neck pain and surgeries. He has chronic numbness and tingling in his left hand but now is having right hand tingling. No weakness. He denies any other injury. He was supposed to check his INR today but he has not. Related Data Home Medications Medication Instructions Recorded Confirmed clopidogrel 75 mg tablet 75 mg PO DAILY 01/12/18 01/20/21 levetiracetam 500 mg tablet 500 mg PO BID 06/15/19 01/20/21 (Chanell) prednisone 5 mg tablet 5 mg PO DAILY 01/18/20 01/20/21 cyclobenzaprine 5 mg tablet 5 mg PO BEDTIME 10/27/20 01/20/21 hydrochlorothiazide 12.5 mg capsule 12.5 mg PO DAILY 10/27/20 01/20/21 probenecid 500 mg-colchicine 0.5 1 tab PO BID 10/27/20 01/20/21 mg tablet carbidopa 25 mg-levodopa 100 mg 1 tab PO TID tab 02/27/21 tablet Previous Rx's Medication Instructions Recorded finasteride 5 mg tablet 5 mg PO QDAY #90 tab 10/24/19 tamsulosin 0.4 mg capsule 0.4 mg PO DAILY #90 cap 07/22/20 metoprolol tartrate 50 mg tablet 50 mg PO BID #180 tab 10/28/20 gabapentin 300 mg capsule 300 mg PO BEDTIME PRN #90 cap 12/09/20 warfarin 4 mg tablet 4 mg PO DAILY #90 tab 01/06/21 tramadol 50 mg tablet 50 mg PO QID PRN #120 tab 01/12/21 tadalafil 5 mg tablet 5 mg PO DAILY #90 tab 02/11/21 epinephrine 0.3 mg/0.3 mL 0.3 mg IM ONCE #1 ea 02/16/21 injection, auto-injector (EpiPen) atorvastatin 40 mg tablet 40 mg PO DAILY #90 tab 02/23/21 cyclobenzaprine 5 mg tablet 5 mg PO TID PRN #10 tab 03/09/21 hydrocodone 5 mg-acetaminophen 325 1 tab PO Q6H PRN #10 tab 03/09/21 mg tablet Allergies Allergy/AdvReac Type Severity Reaction Status Date / Time adhesive tape [ADHESIVE TAPE] Allergy Intermediate Blistered Verified 01/20/21 16:13 skin Anesthetics - Amide Type - Allergy Unknown extremly Verified 01/20/21 16:13 Select A sensitive [ANESTHETICS - AMIDE TYPE] to anesthetics Anesthetics - Ernst Type- Allergy Unknown extremely Verified 01/20/21 16:13 Parabens sensitive [ANESTHETICS - ERNST TYPE] to anesthetics Review of Systems Review of Systems Narrative: GENERAL: Denies chills, fatigue, malaise, fever, sweats, travel HEENT: Denies sinus pain, ear pain, sore throat, difficulty swallowing, neck pain RESPIRATORY: Denies dyspnea, cough, wheezing, hemoptysis, sputum. CARDIOVASCULAR: Denies chest pain, palpitations, orthopnea, edema GASTROINTESTINAL: Denies nausea, vomiting, abdominal pain, diarrhea, consti pation, melena. : Denies dysuria, frequency, incontinence, hematuria, urinary retention, flank pain. MUSCULOSKELETAL:+ neck pain, see HPI SKIN: No rash, no erythema, no pruritus NEUROLOGIC: + see HPI PSYCHIATRIC: No concerning psychosocial issues. 12 point review of systems is negative except for those stated above and HPI Patient History Medical History (Updated 03/09/21 @ 18:53 by Claudia Ellis DO) Atrial fibrillation BPH (benign prostatic hyperplasia) Carotid artery stenosis Cervical spondylosis (~2013) Coronary artery disease Essential hypertension (05/05/15) Gastric outlet obstruction Herniated disc (~2013) Hx MRSA infection (Unknown) Neoplasm of uncertain behavior of skin Nephrolithiasis Parkinsonism Squamous cell carcinoma (Unknown) Symptomatic bradycardia (01/07/16) Surgical History (Updated 11/03/20 @ 11:01 by Deep Dao MD) History of carpal tunnel surgery (1989) Hx of cataract extraction (2015) Hx of laminectomy (~1971) Hx of shoulder replacement (~2010) S/P cervical discectomy (10/2013) S/P coronary artery stent placement S/P placement of cardiac pacemaker (08/2015) Status post lumbar spine surgery for decompression of spinal cord (~1992) Family History Father Heart disease Mother Heart disease Diabetes mellitus Social History marital status: household members: spouse lives independently: Yes 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 RESPIRATORY: Breath sounds equal bilaterally, no wheezes rales or rhonchi. ABDOMEN: Soft, nontender. Normoactive bowel sounds all 4 quadrants. No guarding or rebound. EXTREMITIES: Normal range of motion, no clubbing or edema. Neurovascularly intact NEUROLOGICAL: Alert and oriented x4.Normal gait and speech. Cranial nerves II through XII grossly intact. 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 Course Orders Ordered: ED Orders 03/09/21 09:51 CT cervical spine wo con Stat CT head/brain wo con Stat Discontinued Medications Morphine Sulfate (Morphine 4 Mg/Ml Inj) 4 mg SUBCUT NOW ONE Stop: 03/09/21 11:02 Last Admin: 03/09/21 11:19 Dose: 4 mg Documented by: DILLON Vital Signs Vital signs: Vital Signs - 8 hr 03/09/21 11:00 03/09/21 11:25 Pulse Rate 60 60 Respiratory Rate 20 Blood Pressure 151/84 H Pulse Oximetry 98 99 MDM - Neck Pain/Injury Imaging Data CT scan - head: Radiologist's Impression: PROCEDURE:? CT HEAD/BRAIN WO CON ? INDICATIONS:? fall on thinners ? TECHNIQUE:? Noncontrast 4.5 mm thick angled axial sections acquired from the foramen magnum to the vertex, with coronal and sagittal reformats.? For radiation dose reduction, the following was used:? automated exposure control, adjustment of mA and/or kV according to patient size.? ? COMPARISON:? [facility], CT, CT ANGIO HEAD AND NECK, 11/26/2020, 12:01.? [facility], CT, HEAD WITHOUT CONTRAST, 09/29/2017, 17:18. ? FINDINGS:? Image quality:? Excellent.? ? CSF spaces:? Basal cisterns are patent.? No extra-axial fluid collections.? The ventricles are symmetric in size and shape.? ? Brain:? No intracranial bleeds or masses.? There is cerebral volume loss for age, with resultant ventricular and sulcal prominence.? There are periventricular and deep white matter chronic small vessel ischemic changes.? There is intracranial internal carotid artery atherosclerosis.? ? Skull and face:? Calvarium and visualized facial bones appear intact, without suspicious lesions.? ? Sinuses:? Visualized sinuses and mastoids are clear.? ? ? IMPRESSION:? No acute intracranial hemorrhage is seen.? ? No acute intracranial process is seen.? ? ? Dictated by: Chico Fragoso M.D. on 03/09/2021 at 9:10? CT - cervical spine: Radiologist's Impression: PROCEDURE:? CT CERVICAL SPINE WO CON ? INDICATIONS:? fall on thinners ? TECHNIQUE:? Noncontrast 3 mm thick sections acquired from the skull base to the T4 level.? Sagittal and coronal reformats were then constructed.? For radiation dose reduction, the following was used:? automated exposure control, adjustment of mA and/or kV according to patient size.? ? COMPARISON:? [facility], CT, CT HEAD/BRAIN WO CON, 03/09/2021, 9:57.? [facility], CT, CT ANGIO HEAD AND NECK, 11/26/2020, 12:01. ? FINDINGS:? Image quality:? There is streak artifact seen through the shoulders.? ? Bones:? No fractures or dislocations.? Visualized superior ribs are intact.? ? Postoperative changes are seen, with an anterior disc fusion device at the C3-C4 level.? At least moderate central canal narrowing can be seen at C3-C4.? Mild grade 1 C3-C4 anterolisthesis is seen.? Anterior fixation hardware is seen C4 through T1.? No findings of hardware failure or hardware loosening are seen.? Focal degenerative change is seen involving the C1-C2 interface anteriorly. ? Grade 1 anterolisthesis is seen at C3-C4 and at C7-T1. ? Soft tissues:? Prevertebral soft tissues are normal in thickness.? No paravertebral hematomas.? No apical pneumothoraces.? Left-sided pacer leads are seen. Atherosclerotic calcification is noted.? ? ? IMPRESSION:? Negative for acute fracture. ? Underlying postoperative and degenerative changes are seen. ? ? ? Dictated by: Chico Fragoso M.D. on 03/09/2021 at 9:41 ? ? Approved by: Chico Fragoso M.D. on 03/09/2021 at 9:44 ? MDM Narrative Medical decision making narrative: Patient is overall feeling a bit better. He has been in and out of pain management for his neck for a long time. He would prefer not to have narcotic medications however he does need something. He is given morphine here in the emergency department which does seem to help. He would like a small amount of [place]. He is on Coumadin and Plavix which I discussed with him at significant increased risk of bleeding. I am unsure why he is on both. 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 I have also discussed with him to avoid risky activities such as climbing ladders. Discharge Plan Departure Patient Disposition: Home Clinical Impression: Cervical muscle strain, Closed head injury Instructions: Whiplash, Closed Head Injury Activity Restrictions/Additional Instructions: *You have been diagnosed with closed head injury and cervical strain *What to do: Increase activity as tolerated. Light activities encouraged no strenuous activity. No ladders. Please talk with your primary care provider or your weather strip installer in regards to taking both Plavix and warfarin. There is significant increase in bleeding while taking both. *Continue to take medications as directed [place] 1 tablet every 6 hours if needed for severe pain Cyclobenzaprine 5 mg every 8 hours if needed for muscle spasm *Follow up with your primary care provider in 2-3 days *Return to ER if you should have increased numbness tingling, persistent vomiting, weakness any new, worsening or concerning symptoms CONTROLLED SUBSTANCE DISCHARGE (Narcotoic/benzodiazepine/Flexeril/Phenergan) 1. You have been prescribed narcotic medications, it does have acetaminophen/Tylenol/paracetamol in it, DO NOT TAKE MORE THAN 4,00mg in 24 hours of Tylenol. TRAMADOL DOES NOT CONTAIN TYLENOL 2. Please understand that we cannot provide further refills of narcotics, benzodiazepines or controlled substances through the ED and her pain management will need to be through your provider. 3. While on these medications you cannot drive or operate heavy machinery. 4. You cannot sign legal documents or perform any duties such as this. 5. As long as you're taking opiate pain medications he should also be taking a stool softener such as Colace, Dulcolax, MiraLAX or prune juice, to help avoid constipation. Prescriptions: New cyclobenzaprine 5 mg tablet 5 mg PO TID PRN (Reason: muscle spasm) Qty: 10 RF: 0 hydrocodone-acetaminophen 5-325 mg tablet 1 tab PO Q6H PRN (Reason: pain) Qty: 10 RF: 0 No Action clopidogrel 75 mg tablet 75 mg PO DAILY RF: 0 levetiracetam [Keppra] 500 mg tablet 500 mg PO BID RF: 0 finasteride 5 mg tablet 5 mg PO QDAY Qty: 90 RF: 3 tamsulosin 0.4 mg capsule 0.4 mg PO DAILY Qty: 90 RF: 3 gabapentin 300 mg capsule 300 mg PO BEDTIME PRN (Reason: Sciatica) Qty: 90 RF: 3 warfarin 4 mg tablet 4 mg PO DAILY Qty: 90 RF: 3 tramadol 50 mg tablet 50 mg PO QID PRN (Reason: pain) Qty: 120 RF: 3 tadalafil 5 mg tablet 5 mg PO DAILY Qty: 90 RF: 1 epinephrine [EpiPen] 0.3 mg/0.3 mL auto-injector 0.3 mg IM ONCE Qty: 1 RF: 11 atorvastatin 40 mg tablet 40 mg PO DAILY Qty: 90 RF: 1 carbidopa-levodopa 25-100 mg tablet 1 tab PO TID RF: 0 prednisone 5 mg tablet 5 mg PO DAILY RF: 0 hydrochlorothiazide 12.5 mg capsule 12.5 mg PO DAILY RF: 0 cyclobenzaprine 5 mg tablet 5 mg PO BEDTIME RF: 0 probenecid-colchicine 500-0.5 mg tablet 1 tab PO BID RF: 0 metoprolol tartrate 50 mg tablet 50 mg PO BID Qty: 180 RF: 3 Referrals: Deep Dao MD [Primary Care Provider] -
[2021-03-09 10:05] VITALS: PULSE 60; O2SAT 98
--- NOTE | 2021-03-09 10:08 | PC.NURSE ---
pt arrives and C collar placed in triage. bandaides in place from home as pt states abrasions on forehead- pt denies pain. pt with full ROM and strength x4 and tingling to L hand and fingers he states is baseline, but tingling in R hand is new. pt to CT
[2021-03-09 10:30] VITALS: PULSE 60; O2SAT 95
[2021-03-09 11:00] VITALS: PULSE 60; O2SAT 98
[2021-03-09] MEDS: MORPHINE 4 MG/ML INJ SUBCUT (11:19)
[2021-03-09 11:25] VITALS: BP 151/84; PULSE 60; RESP 20; O2SAT 99
== END 2021-03-09 11:36 | disposition home or self-care (01) ==
PROVIDERS: Emergency Provider Emergency Medicine; Family Provider Student in an Organized Health Care Education/Training Program; PCP Student in an Organized Health Care Education/Training Program
DX: S16.1XXA Strain of muscle, fascia and tendon at neck level, initial encounter (principal); S09.90XA Unspecified injury of head, initial encounter; W19.XXXA Unspecified fall, initial encounter; Z79.01 Long term (current) use of anticoagulants
CPT/HCPCS: 70450; 72125; 96372; 99284; J2270

== ENCOUNTER → 2021-04-17 12:44 | Outpatient (CLI) | payer MEDICARE, OTHER, SELFPAY ==
--- NOTE | 2021-04-17 | DI.CT.S_ITS ---
PROCEDURE: CT ABDOMEN PELVIS WO/W CON INDICATIONS: Gross hematuria TECHNIQUE: Optional 5 mm thick noncontrast images acquired from the diaphragm to the symphysis pubis. After the administration of intravenous contrast, 5 mm thick images acquired from the diaphragm to the symphysis pubis after a 10-minute delay. 2 mm thick coronal and sagittal reformats were then performed of the kidneys and ureters. For radiation dose reduction, the following was used: automated exposure control, adjustment of mA and/or kV according to patient size. COMPARISON: [facility], CT, CT ABDOMEN PELVIS WO/W CON, 05/30/2018, 10:49. FINDINGS: Image quality: Excellent. Lung bases: Lung bases are clear. Heart size is normal. Coronary artery calcification is seen. Urinary system: Bilateral mild perinephric stranding. Nephrolithiasis, measuring up to 8.1 mm. No evidence of obstructive uropathy. Symmetric renal enhancement. Renal calyces appear normal in morphology when filled with contrast. Opacified portions of both ureters demonstrate normal caliber. Bladder wall thickness is normal. No calcified bladder stones. Other solid organs: Liver is normal in size and enhancement. No gallbladder wall thickening, pericholecystic fluid or calcified gallstones. Biliary system is non dilated. Pancreas enhances normally. Spleen is normal in size and enhancement. No adrenal nodules. Peritoneum and bowel: No evidence of intestinal obstruction. Moderate stool burden is seen in the sigmoid colon. No free fluid or air. The appendix appears normal. Nodes and vessels: No retroperitoneal or mesenteric adenopathy by size criteria. Aorta and inferior vena cava are normal in size. Abdominal wall: No ventral hernias. Pelvis: No pathologic free pelvic fluid. No inguinal hernias or adenopathy. Bones: No suspicious bony lesions. Mild levocurvature of the lumbar spine. Moderate to advanced degenerative changes of the thoracolumbar spine with evidence of discectomy laminectomy. A right hip arthroplasty is seen but partially imaged. IMPRESSION: 1. Bilateral nephrolithiasis without evidence of obstructive uropathy. Dictated by: Gray Hernadez M.D. on 04/17/2021 at 13:38 Approved by: Gray Hernadez M.D. on 04/17/2021 at 13:57
== END ==
PROVIDERS: Family Provider Student in an Organized Health Care Education/Training Program; PCP Student in an Organized Health Care Education/Training Program; Referring Provider Urology; Visit Provider Urology
DX: R31.0 Gross hematuria (principal); N20.0 Calculus of kidney
CPT/HCPCS: 74178; Q9967

== ENCOUNTER 2021-12-23 11:53 | Emergency (ER) | payer MEDICARE, OTHER, SELFPAY ==
[2021-12-23] VITALS (40 sets, daily range): BP systolic 106–211; BP diastolic 59–128; PULSE 59–78; RESP 11–41; TEMP 36.2; O2SAT 92–100; BMI 24.2
--- NOTE | 2021-12-23 12:00 | DI.RAD.S_ITS ---
PROCEDURE: XR CHEST 1V INDICATIONS: chest pain TECHNIQUE: One view of the chest was acquired. COMPARISON: [facility], , XR CHEST 2V, 02/23/2018, 15:38. [facility], , CHEST 2 VIEW, 07/07/2015, 14:22. FINDINGS: Surgical changes and devices: Bilateral shoulder arthroplasties. ACDF. Left pacemaker with right atrial and right ventricular leads. Clips in the mid abdomen. Lungs and pleura: Lungs are clear. No pleural effusions or pneumothorax. Mediastinum: Mediastinal contours appear normal. Heart size is normal. Bones and chest wall: No suspicious bony lesions. Overlying soft tissues appear unremarkable. IMPRESSION: No acute cardiopulmonary abnormality. Dictated by: Jose Raul Frederick M.D. on 12/23/2021 at 13:32 Approved by: Jose Raul Frederick M.D. on 12/23/2021 at 13:34
[2021-12-23 12:19] LABS: Add Manual Diff / Slide Review NO; Basophils Absolute Auto 100 /uL (0-100); Basophils Percent Auto 0.8 % (0-2); Eosinophils Absolute Auto 200 /uL (0-450); Eosinophils Percent Auto 2.9 % (2-4); Hematocrit 44.8 % (41-53); Lymphocytes Absolute Auto 1600 /uL (1100-4500); Lymphocytes Percent Auto 19.1 % (25-40); Mean Corpuscular HGB Conc 33.5 % (30-36); Mean Corpuscular Volume 98.7 fL (80-100); Monocytes Absolute Auto 700 /uL (0-900); Monocytes Percent Auto 8.3 % (3-14); Neutrophils Absolute Auto 5700 /uL (1500-7000); Neutrophils Percent Auto 68.9 % (50-75); Platelet Count 224 X10^3/uL (150-400); Red Blood Cell Count 4.54 X10^6/uL (4.5-5.9); Red Cell Distribution Width 15.5 % (11.6-14.8); White Blood Cell Count 8.3 X10^3/uL (4.5-11.0)
[2021-12-23 12:53] LABS: Alanine Aminotransferase 11 IU/L (<50); Albumin 4.3 g/dL (3.5-5.0); Albumin Globulin Ratio 1.6 (1.0-2.8); Alkaline Phosphatase 60 U/L (38-126); Aspartate Aminotransferase 45 IU/L (17-59); BUN Creatinine Ratio 20.6 (6-22); Bilirubin Total 0.6 mg/dL (0.2-1.3); Blood Urea Nitrogen 14 mg/dL (9-20); Calcium 8.8 mg/dL (8.4-10.2); Carbon Dioxide 34 mmol/L (22-32); Chloride 100 mmol/L (98-107); Creatine Kinase 132 U/L (55-170); Estimated Glomerular Filt Rate > 60 mL/min (>60); Globulin 2.7 g/dL (1.7-4.1); Glucose 107 mg/dL (80-110); Lipase 37 U/L (23-300); Potassium 3.5 mmol/L (3.4-5.1); Sodium 139 mmol/L (137-145)
[2021-12-23 13:04] LABS: Troponin I < 0.012 ng/mL (0.01-0.034)
[2021-12-23 13:36] LABS: CKMB % Relative Index 2.1 % (1.5-5.0); Creatine Kinase MB 2.77 ng/mL (<2.37); HEMOLYSIS 23 (0-50)
--- NOTE | 2021-12-23 14:59 | ED.CHESTPAIN ---
HPI - Chest Pain General Chief Complaint: Chest Pain Stated Complaint: CHEST PAIN Time Seen by Provider: 12/23/21 14:37 Source: patient Mode of arrival: Family Vehicle Limitations: no limitations History of Present Illness HPI narrative: The patient has known CAD, he had an TX in 2019. He was airlifted from [facility] to [facility], 4 stents were placed. Last week he had left-sided chest pain radiating around his chest to the night. He had weakness and dyspnea at that time. Pain eventually resolved. He has continued to have the significant dyspnea with exertion. He was seen by his buttonhole maker, Dr. Lomeli, and sent here for further evaluation. He has had no chest pain or dyspnea at this time. Dr. Lomeli believes he is under reporting his illness because his is crippled home with RA. He is anxious to get back to her. The patient denies recent illness. Related Data Home Medications Medication Instructions Recorded Confirmed clopidogrel 75 mg tablet 75 mg PO DAILY 01/12/18 09/22/21 levetiracetam 500 mg tablet 500 mg PO BID 06/15/19 09/22/21 (Keppra) prednisone 5 mg tablet 5 mg PO DAILY 01/18/20 09/22/21 hydrochlorothiazide 12.5 mg capsule 12.5 mg PO DAILY 10/27/20 09/22/21 probenecid 500 mg-colchicine 0.5 1 tab PO BID 10/27/20 09/22/21 mg tablet carbidopa 25 mg-levodopa 100 mg 1 tab PO TID 02/27/21 09/22/21 tablet Previous Rx's Medication Instructions Recorded finasteride 5 mg tablet 5 mg PO QDAY #90 tabs 10/24/19 tadalafil 5 mg tablet 5 mg PO DAILY #90 tabs 02/11/21 epinephrine 0.3 mg/0.3 mL 0.3 mg (0.3 mL) IM ONCE #1 ea 02/16/21 injection, auto-injector (EpiPen) cyclobenzaprine 5 mg tablet 5 mg PO TID PRN muscle spasm #10 03/09/21 tabs metoprolol tartrate 50 mg tablet 50 mg PO BID #180 tabs 07/21/21 atorvastatin 40 mg tablet 40 mg PO DAILY #90 tabs 08/13/21 tamsulosin 0.4 mg capsule 0.4 mg PO DAILY #90 caps 08/19/21 warfarin 4 mg tablet 4 mg PO DAILY #90 tabs 10/13/21 tramadol 50 mg tablet 50 mg PO QID PRN pain #120 tabs 11/13/21 oxycodone-acetaminophen 5 mg-325 See Rx Instructions PO Q8H PRN 11/29/21 mg tablet pain #30 tabs gabapentin 300 mg capsule 300 mg PO BEDTIME PRN Sciatica #90 12/15/21 caps Allergies Allergy/AdvReac Type Severity Reaction Status Date / Time adhesive tape [ADHESIVE TAPE] Allergy Intermediate Blistered Verified 09/22/21 13:07 skin Anesthetics - Amide Type - Allergy Unknown extremly Verified 09/22/21 13:07 Select A sensitive [ANESTHETICS - AMIDE TYPE] to anesthetics Anesthetics - Ernst Type- Allergy Unknown extremely Verified 09/22/21 13:07 Parabens sensitive [ANESTHETICS - ERNST TYPE] to anesthetics Review of Systems Constitutional Constitutional: Denies body ache(s), Denies chills, Reports fatigue, Denies fever(s) and Denies frequent falls Eyes Eyes: Denies change in vision ENT Ears, Nose, Mouth, and Throat: Denies vertigo, Reports dizziness, Denies sinus pain, Denies sinus pressure and Denies sore throat Cardiovascular Cardiovascular: Reports as per HPI, Denies syncope and Reports dyspnea on exertion Respiratory Respiratory: Denies chest congestion, Denies cough and Reports dyspnea on exertion Gastrointestinal Gastrointestinal: Denies abdominal pain, Denies bloating, Denies nausea and Denies vomiting Genitourinary Comments: No urinary complaints. Musculoskeletal Musculoskeletal: Denies back pain and Denies myalgias Integumentary/Breasts Skin/Breast: Denies rash and Denies skin pain Neurologic Neurologic: Denies confusion, Denies vertigo, Reports dizziness, Denies syncope and Denies frequent falls Psychiatric Psychiatric: Denies confusion Endocrine Endocrine: Reports fatigue Hematologic/Lymphatic On Anticoagulants: No Patient History Medical History Atrial fibrillation BPH (benign prostatic hyperplasia) Carotid artery stenosis Cervical spondylosis (~2013) Coronary artery disease Essential hypertension (05/05/15) Gastric outlet obstruction Herniated disc (~2013) Hx MRSA infection (Unknown) Neoplasm of uncertain behavior of skin Nephrolithiasis Parkinsonism Squamous cell carcinoma (Unknown) Symptomatic bradycardia (01/07/16) Surgical History History of carpal tunnel surgery (1989) Hx of cataract extraction (2015) Hx of laminectomy (~1971) Hx of shoulder replacement (~2010) S/P cervical discectomy (10/2013) S/P coronary artery stent placement S/P placement of cardiac pacemaker (08/2015) Status post lumbar spine surgery for decompression of spinal cord (~1992) Family History Father Heart disease Mother Heart disease Diabetes mellitus Social History marital status: household members: spouse lives independently: Yes 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 Smoking Status: Never smoker alcohol intake: current (has a little small glass but now that on coumadin, pt is not drinking) Smoking Status: Never smoker alcohol intake frequency: 0-2 drinks per day Substance Use Type: does not use Exam Initial Vital Signs Initial Vital Signs: Vital Signs Temperature 97.1 F L 12/23/21 11:58 Pulse Rate 67 12/23/21 11:58 Respiratory Rate 28 H 12/23/21 11:58 Pulse Oximetry 98 12/23/21 11:58 Const General: cooperative, comfortable, well developed and well groomed HENWI Head: normal to inspection, normocephalic and atraumatic Face and sinus: normal facial exam Throat: posterior oropharynx normal Eyes Pupils: PERRL EOM: EOM intact bilaterally and EOM abnormal Neck Neck: full ROM and supple Thyroid: thyroid normal Chest Chest: normal inspection of the chest and normal palpation of entire chest wall Resp Auscultation: clear to auscultation bilaterally Cardio Rate: regular rate Rhythm: regular rhythm Heart Sounds: S1 normal, S2 normal, no gallops, no murmurs and no rubs GI Inspection: normal to inspection Palpation: soft, No mass and No tender Percussion: normal to percussion Auscultation: normal bowel sounds Back/Spine/Pelvis Back: normal to inspection and No back tenderness Skin General: no rashes or lesions noted Neuro General: patient alert, patient awake, patient oriented x3 and no focal motor deficits Extrem General: normal to inspection, full ROM, no pedal edema and no calf tenderness Psych Appearance: grossly normal Course Course Course Narrative: The patient has been heparinized, he is in the ER waiting an open bed at [facility]. Dr. Alejo is the accepting buttonhole maker. Patient has generalized pain. He was complaining of generalized pain and he has not had his medications recently. I had just seen him and ordered meds when I suddenly called back. The patient had an 12nd run of torsades de Pointe. He converted back to normal sinus rhythm without intervention. He has no sick chest pain or dyspnea. I discussed the situation with Dr. Tafoya. Vitals reviewed. Meds were reviewed. Patient was given atorvastatin 40 mg in addition to his current dose. Patient was given Lopressor 75 mg p.o., with advice to increase his dose to 75 mg b.i.d. he takes Plavix, additional 300 mg of Plavix was given. Morphine has been given for his pain. The patient continues to await a bed for transfer to [facility].Brenda JOHNSON 12/23/21@1805. The patient has been clinically stable since the arrhythmia event. A repeat troponin remains normal. A 2nd EKG is unchanged. He is resting quietly. Care for the patient will be transitioned to my partner here in the ER, Dr. Hess. Patient is waiting an open bed at [facility] in transfer.Brenda JOHNSON 12/23/21@2020. Orders Ordered: ED Orders 12/23/21 12:00 XR chest 1V Stat EKG-12 Lead Stat 12/23/21 12:05 Complete Blood Count AUTO DIFF Stat Comprehensive Metabolic Panel Stat Lipase Stat Magnesium Stat PTT [Partial Thromboplastin Time] Stat Prothrombin Time INR Stat Troponin & CK Cardiac Panel Stat 12/23/21 15:43 COVID19 - ADMIT (J[employer]NEY[employer]PER[employer] swab/PCR) Stat 12/23/21 17:49 EKG-12 Lead Stat 12/23/21 17:54 Trop I [Troponin I] Stat 12/23/21 21:30 PTT [Partial Thromboplastin Time] Stat Heparin Sodium/Dextrose (Heparin Drip) 25,000 unit in 500 mls @ 16.329 mls/hr IV CONT BRANDIE; Protocol Last Admin: 12/23/21 15:23 Dose: 12 units/kg/hr, 16.329 mls/hr Documented By: MONAE Discontinued Medications Aspirin (Aspirin 81 Mg Chew Tab) 324 mg PO NOW ONE Stop: 12/23/21 17:59 Last Admin: 12/23/21 18:09 Dose: 324 mg Documented By: MONAE Atorvastatin Calcium (Atorvastatin 20 Mg Tablet) 40 mg PO NOW ONE Stop: 12/23/21 17:59 Last Admin: 12/23/21 18:38 Dose: 40 mg Documented By: MONAE Clopidogrel Bisulfate (Clopidogrel 75 Mg Tablet) 300 mg PO NOW ONE Stop: 12/23/21 17:59 Last Admin: 12/23/21 18:09 Dose: 300 mg Documented By: MONAE Heparin Sodium (Porcine) (Heparin 5,000 Unit/Ml Vial) 5,000 unit IV NOW ONE Stop: 12/23/21 15:09 Last Admin: 12/23/21 15:23 Dose: 5,000 unit Documented By: MONAE POTASSIUM CHLORIDE IN WATER (Potassium Cl 10 Meq/100 Ml Concepcion) 10 meq in 100 mls @ 100 mls/hr IV Q1H BRANDIE Stop: 12/23/21 20:14 Last Admin: 12/23/21 19:38 Dose: 100 mls/hr Documented By: Infusion: 12/23/21 19:27 Dose: 0 mls/hr Documented By: Admin: 12/23/21 18:16 Dose: 100 mls/hr Documented By: MONAE Metoprolol Tartrate (Metoprolol Ir 25 Mg Tablet) 75 mg PO NOW ONE Stop: 12/23/21 17:59 Last Admin: 12/23/21 18:12 Dose: 75 mg Documented By: MONAE Morphine Sulfate (Morphine 4 Mg/Ml Inj) 4 mg IV NOW ONE Stop: 12/23/21 17:42 Last Admin: 12/23/21 17:51 Dose: 4 mg Documented By: MONAE Nitroglycerin (Nitroglycerin Oint 1 Inch/Gm Oint...G.) 1 inch TOP NOW ONE Stop: 12/23/21 18:30 Last Admin: 12/23/21 18:30 Dose: 1 inch Documented By: MONAE Potassium Chloride (Potassium Chloride 20 Meq/15 Ml Udc) 20 meq PO NOW ONE Stop: 12/23/21 17:50 Last Admin: 12/23/21 18:03 Dose: Not Given Documented By: MONAE Vital Signs Vital signs: Vital Signs - 8 hr 12/23/21 12:30 12/23/21 12:31 12/23/21 12:31 Pulse Rate 65 60 Respiratory Rate 19 15 Blood Pressure 141/70 H Pulse Oximetry 99 99 12/23/21 13:00 12/23/21 13:00 12/23/21 13:30 Pulse Rate 60 Respiratory Rate 12 Blood Pressure 151/74 H 145/73 H Pulse Oximetry 99 12/23/21 13:30 12/23/21 14:00 12/23/21 14:00 Pulse Rate 60 60 Respiratory Rate 13 Blood Pressure 155/74 H Pulse Oximetry 99 99 12/23/21 14:30 12/23/21 14:30 12/23/21 15:00 Pulse Rate 60 60 Respiratory Rate 13 Blood Pressure 152/69 H Pulse Oximetry 99 100 12/23/21 15:25 12/23/21 15:25 12/23/21 15:30 Pulse Rate 61 Respiratory Rate 17 Blood Pressure 140/70 124/68 Pulse Oximetry 100 12/23/21 15:30 12/23/21 16:00 12/23/21 16:00 Pulse Rate 60 61 Respiratory Rate 11 L 12 Blood Pressure 148/76 H Pulse Oximetry 98 100 12/23/21 16:30 12/23/21 16:30 12/23/21 17:00 Pulse Rate 60 Respiratory Rate 13 Blood Pressure 142/68 H 132/70 Pulse Oximetry 94 12/23/21 17:00 12/23/21 18:30 12/23/21 17:30 Pulse Rate 60 78 Respiratory Rate 13 Blood Pressure 181/110 H 127/85 Pulse Oximetry 97 12/23/21 17:30 12/23/21 18:00 12/23/21 18:12 Pulse Rate 74 69 60 Respiratory Rate 33 H 25 H 23 Blood Pressure Pulse Oximetry 99 99 100 12/23/21 18:12 12/23/21 18:22 12/23/21 18:22 Pulse Rate 70 Respiratory Rate 26 H Blood Pressure 211/99 H 188/128 H Pulse Oximetry 100 12/23/21 18:30 12/23/21 18:31 12/23/21 18:31 Pulse Rate 59 L 59 L Respiratory Rate 31 H 38 H Blood Pressure 191/92 H Pulse Oximetry 100 98 12/23/21 18:34 12/23/21 18:34 12/23/21 18:37 Pulse Rate 60 Respiratory Rate 41 H Blood Pressure 149/92 H 158/89 H Pulse Oximetry 99 12/23/21 18:37 12/23/21 18:40 12/23/21 18:40 Pulse Rate 60 60 Respiratory Rate 34 H 37 H Blood Pressure 168/90 H Pulse Oximetry 100 100 12/23/21 18:50 12/23/21 18:50 12/23/21 19:00 Pulse Rate 60 Respiratory Rate 32 H Blood Pressure 164/89 H 160/90 H Pulse Oximetry 96 12/23/21 19:00 12/23/21 19:10 12/23/21 19:10 Pulse Rate 61 60 Respiratory Rate 31 H 20 Blood Pressure 158/81 H Pulse Oximetry 98 96 12/23/21 19:15 12/23/21 19:15 12/23/21 19:30 Pulse Rate 61 Respiratory Rate 21 Blood Pressure 153/84 H 141/77 H Pulse Oximetry 99 12/23/21 19:30 12/23/21 19:45 12/23/21 19:45 Pulse Rate 60 60 Respiratory Rate 15 13 Blood Pressure 137/75 Pulse Oximetry 96 97 12/23/21 20:00 12/23/21 20:00 12/23/21 20:15 Pulse Rate 60 Respiratory Rate 12 Blood Pressure 129/71 126/71 Pulse Oximetry 95 12/23/21 20:15 Pulse Rate 60 Respiratory Rate 12 Blood Pressure Pulse Oximetry 97 MDM - Chest Pain Lab Data Result diagrams: 12/23/21 12:05 12/23/21 12:05 Labs: Lab Results 12/23/21 12/23/21 12/23/21 Range/Units 12:05 12:05 12:05 WBC 8.3 (4.5-11.0) X10^3/uL RBC 4.54 (4.5-5.9) X10^6/uL Hgb 15.0 (13.5-17.5) g/dL Hct 44.8 (41-53) % MCV 98.7 (80-100) fL MCH 33.0 (26-34) PG MCHC 33.5 (30-36) % RDW 15.5 H (11.6-14.8) % Plt Count 224 (150-400) X10^3/uL Neut % (Auto) 68.9 (50-75) % Lymph % (Auto) 19.1 L (25-40) % Ford % (Auto) 8.3 (3-14) % Eos % (Auto) 2.9 (2-4) % Baso % (Auto) 0.8 (0-2) % Neut # (Auto) 5700 (1592-8154) /uL Lymph # (Auto) 1600 (6948-5120) /uL Ford # (Auto) 700 (0-900) /uL Eos # (Auto) 200 (0-450) /uL Baso # (Auto) 100 (0-100) /uL PT 42.9 H (10.1-12.7) SECONDS INR 3.7 H (0.9-1.3) APTT Cancelled Sodium 139 (137-145) mmol/L Potassium 3.5 (3.4-5.1) mmol/L Chloride 100 (98-107) mmol/L Carbon Dioxide 34 H (22-32) mmol/L BUN 14 (9-20) mg/dL Creatinine 0.68 (0.66-1.25) mg/dL Estimated GFR > 60 (>60) mL/min BUN/Creatinine Ratio 20.6 (6-22) Glucose 107 (80-110) mg/dL Calcium 8.8 (8.4-10.2) mg/dL Magnesium 2.0 (1.6-2.3) mg/dL Total Bilirubin 0.6 (0.2-1.3) mg/dL AST 45 (17-59) IU/L ALT 11 (<50) IU/L Alkaline Phosphatase 60 (38-126) U/L Total Creatine Kinase 132 (55-170) U/L CK-MB (CK-2) 2.77 H (<2.37) ng/mL CK-MB (CK-2) Rel Index 2.1 (1.5-5.0) % Troponin I < 0.012 (0.01-0.034) ng/mL Total Protein 7.0 (6.3-8.2) g/dL Albumin 4.3 (3.5-5.0) g/dL Globulin 2.7 (1.7-4.1) g/dL Albumin/Globulin Ratio 1.6 (1.0-2.8) Lipase 37 (23-300) U/L SARS-CoV-2 (PCR) (Negative) 12/23/21 12/23/21 12/23/21 Range/Units 12:05 15:43 17:54 WBC (4.5-11.0) X10^3/uL RBC (4.5-5.9) X10^6/uL Hgb (13.5-17.5) g/dL Hct (41-53) % MCV (80-100) fL MCH (26-34) PG MCHC (30-36) % RDW (11.6-14.8) % Plt Count (150-400) X10^3/uL Neut % (Auto) (50-75) % Lymph % (Auto) (25-40) % Ford % (Auto) (3-14) % Eos % (Auto) (2-4) % Baso % (Auto) (0-2) % Neut # (Auto) (2280-2974) /uL Lymph # (Auto) (4899-1542) /uL Ford # (Auto) (0-900) /uL Eos # (Auto) (0-450) /uL Baso # (Auto) (0-100) /uL PT (10.1-12.7) SECONDS INR (0.9-1.3) APTT 50 H Sodium (137-145) mmol/L Potassium (3.4-5.1) mmol/L Chloride (98-107) mmol/L Carbon Dioxide (22-32) mmol/L BUN (9-20) mg/dL Creatinine (0.66-1.25) mg/dL Estimated GFR (>60) mL/min BUN/Creatinine Ratio (6-22) Glucose (80-110) mg/dL Calcium (8.4-10.2) mg/dL Magnesium (1.6-2.3) mg/dL Total Bilirubin (0.2-1.3) mg/dL AST (17-59) IU/L ALT (<50) IU/L Alkaline Phosphatase (38-126) U/L Total Creatine Kinase (55-170) U/L CK-MB (CK-2) (<2.37) ng/mL CK-MB (CK-2) Rel Index (1.5-5.0) % Troponin I < 0.012 (0.01-0.034) ng/mL Total Protein (6.3-8.2) g/dL Albumin (3.5-5.0) g/dL Globulin (1.7-4.1) g/dL Albumin/Globulin Ratio (1.0-2.8) Lipase (23-300) U/L SARS-CoV-2 (PCR) Negative (Negative) Imaging Data Chest x-ray: Radiologist's Impression: No acute findings ECG Data Attestation: I personally reviewed and interpreted this ECG as follows: (Normal sinus rhythm rate 60 beats per minute. Motion defect. Normal intervals. No ectopy. No acute ST T wave changes.) Discharge Plan Departure Patient Disposition: [facility] Clinical Impression: Angina pectoris, unstable, Coronary artery disease, Torsades de pointes Prescriptions: No Action clopidogrel 75 mg tablet 75 mg PO DAILY levetiracetam [Keppra] 500 mg tablet 500 mg PO BID finasteride 5 mg tablet 5 mg PO QDAY Qty: 90 3RF tadalafil 5 mg tablet 5 mg PO DAILY Qty: 90 1RF epinephrine [EpiPen] 0.3 mg/0.3 mL auto-injector 0.3 mg IM ONCE Qty: 1 11RF carbidopa-levodopa 25-100 mg tablet 1 tab PO TID metoprolol tartrate 50 mg tablet 50 mg PO BID Qty: 180 1RF atorvastatin 40 mg tablet 40 mg PO DAILY Qty: 90 1RF tamsulosin 0.4 mg capsule 0.4 mg PO DAILY Qty: 90 3RF warfarin 4 mg tablet 4 mg PO DAILY Qty: 90 3RF Rx Instructions: 4mg Tuesday and Tuesday,2mg all other days, or as directed. tramadol 50 mg tablet 50 mg PO QID PRN (Reason: pain) Qty: 120 0RF Rx Instructions: EXEMPT oxycodone-acetaminophen 5-325 mg tablet See Rx Instructions PO Q8H PRN (Reason: pain) Qty: 30 0RF Rx Instructions: 1/2 tab in the morning, 1/2 tab in the afternoon, full tab at night. gabapentin 300 mg capsule 300 mg PO BEDTIME PRN (Reason: Sciatica) Qty: 90 1RF prednisone 5 mg tablet 5 mg PO DAILY hydrochlorothiazide 12.5 mg capsule 12.5 mg PO DAILY probenecid-colchicine 500-0.5 mg tablet 1 tab PO BID cyclobenzaprine 5 mg tablet 5 mg PO TID PRN (Reason: muscle spasm) Qty: 10 0RF Referrals: Deep Dao MD [Primary Care Provider] -
[2021-12-23] MEDS: HEPARIN 5,000 UNIT/ML VIAL 5000 UNIT IV (15:23)
[2021-12-23] MEDS: HEPARIN DRIP 25,000 UNIT/500 ML IV.SOLN 16.329 UNIT IV (15:23)
[2021-12-23 15:46] LABS: PTT Partial Thromboplastin Tim 50 SECONDS (26.4-36.2)
[2021-12-23 15:59] LABS: INR 3.7 (0.9-1.3); Prothrombin Time 42.9 SECONDS (10.1-12.7)
[2021-12-23 16:20] LABS: COVID19 - ADMIT (NP swab/PCR) Negative (Negative)
[2021-12-23] MEDS: MORPHINE 4 MG/ML INJ IV (17:51)
--- NOTE | 2021-12-23 17:57 | PC.NURSE ---
1746:48-1746:59 sec 11 sec run of Torsades. Patient placed on defib pads and Dr Modi pulled to bedside. Patient medicated with IV Morphine 4mg for genrealized pain. Patient prior to event had been complaining about generalized body pain, and reports missing his normal dose of pain meds.
[2021-12-23] MEDS: ASPIRIN 81 MG CHEW TAB 324 MG PO (18:09)
[2021-12-23] MEDS: CLOPIDOGREL 75 MG TABLET 300 MG PO (18:09)
[2021-12-23] MEDS: METOPROLOL IR 25 MG TABLET 75 MG PO (18:12)
[2021-12-23] MEDS: POTASSIUM CHLORIDE IN WATER 10 MEQ/100 ML PIGGYBACK 100 MEQ IV ×2 (18:16→19:38)
--- NOTE | 2021-12-23 18:25 | PC.NURSE ---
Patient c/o severe left arm pain bicep down to wrist. Provider aware. Verbal for nitro 1 inch ordered.
[2021-12-23] MEDS: NITROGLYCERIN OINT 1 INCH/GM OINT...G. TOP (18:30)
[2021-12-23] MEDS: ATORVASTATIN 20 MG TABLET 40 MG PO (18:38)
[2021-12-23 18:50] LABS: Troponin I < 0.012 ng/mL (0.01-0.034)
--- NOTE | 2021-12-23 19:16 | PC.NURSE ---
During c/o left arm pain, IV potassium switched to right arm, pain seemed to let up some on left and started on right arm. IV solution started to dilute IV potassium to aid in discomfort. Hand off given at bedside to Milo JASSO.
[2021-12-23 22:19] LABS: PTT Partial Thromboplastin Tim > 400 SECONDS (26.4-36.2)
[2021-12-24] VITALS (38 sets, daily range): BP systolic 115–150; BP diastolic 66–77; PULSE 60–68; RESP 10–27; O2SAT 92–98
--- NOTE | 2021-12-24 03:42 | PC.NURSE ---
Pt reports generalized joint pain that pt reports is chronic. Pt states he takes tramadol at home for pain. Verbal order obtained for 50mg PO tramadol.
[2021-12-24] MEDS: TRAMADOL 50 MG TABLET PO ×3 (03:45→13:12)
--- NOTE | 2021-12-24 03:55 | PC.NURSE ---
Pt reporting mild right lateral calf pain with flexion of his foot. Dr. Hess notified of this.
[2021-12-24 04:39] LABS: Add Manual Diff / Slide Review NO; Basophils Absolute Auto 100 /uL (0-100); Basophils Percent Auto 1.3 % (0-2); Eosinophils Absolute Auto 200 /uL (0-450); Eosinophils Percent Auto 3.1 % (2-4); Hematocrit 39.6 % (41-53); Hemoglobin 13.4 g/dL (13.5-17.5); Lymphocytes Absolute Auto 2300 /uL (1100-4500); Mean Corpuscular HGB Conc 33.9 % (30-36); Mean Corpuscular Hemoglobin 33.1 PG (26-34); Mean Corpuscular Volume 97.6 fL (80-100); Monocytes Absolute Auto 600 /uL (0-900); Monocytes Percent Auto 7.9 % (3-14); Neutrophils Absolute Auto 4000 /uL (1500-7000); Neutrophils Percent Auto 55.7 % (50-75); Platelet Count 186 X10^3/uL (150-400); Red Blood Cell Count 4.06 X10^6/uL (4.5-5.9); Red Cell Distribution Width 15.2 % (11.6-14.8); White Blood Cell Count 7.2 X10^3/uL (4.5-11.0)
[2021-12-24 04:50] LABS: BUN Creatinine Ratio 22.8 (6-22); Blood Urea Nitrogen 13 mg/dL (9-20); Calcium 7.8 mg/dL (8.4-10.2); Carbon Dioxide 27 mmol/L (22-32); Chloride 104 mmol/L (98-107); Estimated Glomerular Filt Rate > 60 mL/min (>60); Glucose 88 mg/dL (80-110); HEMOLYSIS < 15 (0-50); Potassium 3.6 mmol/L (3.4-5.1); Sodium 136 mmol/L (137-145)
[2021-12-24 05:02] LABS: Troponin I < 0.012 ng/mL (0.01-0.034)
[2021-12-24 05:07] LABS: PTT Partial Thromboplastin Tim > 400 SECONDS (26.4-36.2)
--- NOTE | 2021-12-24 05:10 | PC.NURSE ---
Pt PTT still >400. Per protocol, heparin paused for the next 60 minutes, then dose decreased. Provider, Dr. Hess notified of continued high PTT.
--- NOTE | 2021-12-24 05:19 | PC.NURSE ---
Pt states he actually takes two 50mg tablets of tramadol.
[2021-12-24] MEDS: METOPROLOL ER 25 MG TABLET 75 MG PO (08:22)
[2021-12-24 11:33] LABS: PTT Partial Thromboplastin Tim 54 SECONDS (26.4-36.2)
--- NOTE | 2021-12-24 11:40 | PC.NURSE ---
PTT in target range, no rate change at this time, verified with Janis JASSO.
--- NOTE | 2021-12-24 14:12 | PC.NURSE ---
Responded to pt call light, pt reports discomfort r/t stretcher and unrelieved by tramadol. Pt discussed desire to go home and follow up with [facility] for procedure, educated pt on current plan of care, indication for ongoing Heparin drip, assisted with reposition. Pt reports Dr. Lomeli had concerns for him falling on blood thinner and injuring self, reinforced education.
== END 2021-12-24 16:35 | disposition left against medical advice (07) ==
PROVIDERS: Emergency Medicine; Emergency Provider Emergency Medicine; Family Provider Student in an Organized Health Care Education/Training Program; PCP Student in an Organized Health Care Education/Training Program
DX: I25.110 Atherosclerotic heart disease of native coronary artery with unstable angina pectoris (principal); I47.2 Ventricular tachycardia; R06.00 Dyspnea, unspecified; Z20.822 Contact with and (suspected) exposure to COVID-19
CPT/HCPCS: 36415; 71045; 80048; 80053; 82550; 82553; 83690; 83735; 84484; 85025; 85610; 85730; 87635; 93005; 96365; 96366; 96375; 99285; C9803; J1644; J2270

== ENCOUNTER → 2022-01-25 13:23 | Outpatient (CLI) | payer MEDICARE, OTHER, SELFPAY ==
--- NOTE | 2022-01-25 13:25 | DI.RAD.S_ITS ---
PROCEDURE: XR SHOULDER RT MIN 2V INDICATIONS: Re-assess BL shoulder hardware TECHNIQUE: 3 views of the shoulder were acquired. COMPARISON: None. FINDINGS: Bones: Expected appearance of right shoulder arthroplasty. No evidence of hardware failure or loosening. No fractures or dislocations. No suspicious bony lesions. Visualized ribs appear intact. Soft tissues: No suspicious soft tissue calcifications. Pacemaker. Cervical spine fusion hardware. IMPRESSION: Expected appearance of right shoulder arthroplasty. Dictated by: Shantanu Frank M.D. on 01/25/2022 at 14:56 Approved by: Shantanu Frank M.D. on 01/25/2022 at 14:57
--- NOTE | 2022-01-25 13:25 | DI.RAD.S_ITS ---
PROCEDURE: XR SHOULDER LT MIN 2V INDICATIONS: Re-assess BL shoulder hardware TECHNIQUE: 3 views of the shoulder were acquired. COMPARISON: None. FINDINGS: Bones: Expected appearance of left shoulder arthroplasty. No evidence of hardware failure or loosening. No fractures or dislocations. No suspicious bony lesions. Visualized ribs appear intact. Soft tissues: No suspicious soft tissue calcifications. Left chest pacemaker. IMPRESSION: Expected appearance of left shoulder arthroplasty. Dictated by: Shantanu Frank M.D. on 01/25/2022 at 14:55 Approved by: Shantanu Frank M.D. on 01/25/2022 at 14:56
== END ==
PROVIDERS: Family Provider Student in an Organized Health Care Education/Training Program; PCP Student in an Organized Health Care Education/Training Program; Referring Provider Student in an Organized Health Care Education/Training Program; Visit Provider Student in an Organized Health Care Education/Training Program
DX: M25.511 Pain in right shoulder (principal); M25.512 Pain in left shoulder; Z96.612 Presence of left artificial shoulder joint; Z96.611 Presence of right artificial shoulder joint; Z95.0 Presence of cardiac pacemaker
CPT/HCPCS: 73030

== ENCOUNTER 2022-07-06 22:22 | Emergency (ER) | payer MEDICARE, OTHER, SELFPAY ==
[2022-07-06 22:31] VITALS: BP 131/68; PULSE 64; RESP 18; TEMP 37.1; O2SAT 96; BMI 26.5
--- NOTE | 2022-07-06 22:45 | DI.RAD.S_ITS ---
PROCEDURE: XR HIP W PEL IF DONE RT 2V INDICATIONS: eval for dislocation/fracture TECHNIQUE: AP pelvis with lateral view of the right hip. COMPARISON: None. FINDINGS: Bones: There is posterolateral dislocation of a right hip prosthesis. No definite associated fracture identified. Pelvic ring appears intact. No suspicious bony lesions. Postsurgical changes demonstrated within the lower lumbar spine. Soft tissues: The visualized bowel gas pattern is normal. No suspicious soft tissue calcifications. IMPRESSION: 1. Posterolateral dislocation of right hip prosthesis. Dictated by: Aris Cordoba M.D. on 07/07/2022 at 0:13 Approved by: Aris Cordoba M.D. on 07/07/2022 at 0:14
--- NOTE | 2022-07-06 22:46 | ED_ITS ---
HPI - Extremity Injury (Lower) General Chief Complaint: Extremity Injury, Lower Stated Complaint: Fell out of bed. Time Seen by Provider: 07/06/22 22:45 Source: patient and EMS Mode of arrival: EMS Limitations: no limitations History of Present Illness HPI Narrative: Patient is a 76-year-old male here for evaluation for what he states is a right hip dislocation. He has a prosthetic hip in the side. This would be his 10th dislocation. He states he rolled out of bed and landed on his right side. He also has an abrasion to his left elbow. No fevers. No other injuries from the event. States the last time this happened he needed sedated and his hip was reduced without problems. Related Data Home Medications Medication Instructions Recorded Confirmed clopidogrel 75 mg tablet 75 mg PO DAILY 01/12/18 01/25/22 levetiracetam 500 mg tablet 500 mg PO BID 06/15/19 01/25/22 (Keppra) prednisone 5 mg tablet 5 mg PO DAILY 01/18/20 01/25/22 hydrochlorothiazide 12.5 mg capsule 12.5 mg PO DAILY 10/27/20 01/25/22 probenecid 500 mg-colchicine 0.5 1 tab PO BID 10/27/20 01/25/22 mg tablet carbidopa 25 mg-levodopa 100 mg 1 tab PO TID 02/27/21 01/25/22 tablet aspirin 81 mg tablet,delayed 81 mg PO DAILY 01/14/22 01/25/22 release (Adult Low Dose Aspirin) warfarin 4 mg tablet See Rx Instructions PO .COMPLEX 06/29/22 Previous Rx's Medication Instructions Recorded finasteride 5 mg tablet 5 mg PO QDAY #90 tabs 10/24/19 epinephrine 0.3 mg/0.3 mL 0.3 mg (0.3 mL) IM ONCE #1 ea 02/16/21 injection, auto-injector (EpiPen) cyclobenzaprine 5 mg tablet 5 mg PO TID PRN muscle spasm #10 03/09/21 tabs tamsulosin 0.4 mg capsule 0.4 mg PO DAILY #90 caps 08/19/21 metoprolol tartrate 50 mg tablet 50 mg PO BID #180 tabs 01/21/22 atorvastatin 40 mg tablet 40 mg PO DAILY #90 tabs 02/16/22 gabapentin 300 mg capsule 300 mg PO BEDTIME PRN Sciatica #90 03/17/22 caps tramadol 50 mg tablet 50 mg PO 5XD PRN pain #150 tabs 07/06/22 Allergies Allergy/AdvReac Type Severity Reaction Status Date / Time adhesive tape [ADHESIVE TAPE] Allergy Intermediate Blistered Verified 01/25/22 12:46 skin Anesthetics - Amide Type - Allergy Unknown extremly Verified 01/25/22 12:46 Select A sensitive [ANESTHETICS - AMIDE TYPE] to anesthetics Anesthetics - Ernst Type- Allergy Unknown extremely Verified 01/25/22 12:46 Parabens sensitive [ANESTHETICS - ERNST TYPE] to anesthetics Review of Systems Constitutional Constitutional: Reports system reviewed and no additional complaints, except as documented Musculoskeletal Musculoskeletal: Reports system reviewed and no additional complaints, except as documented Integumentary/Breasts Skin/Breast: Reports system reviewed and no additional complaints, except as documented Neurologic Neurologic: Reports system reviewed and no additional complaints, except as documented Hematologic/Lymphatic On Anticoagulants: Yes Patient History Medical History Atrial fibrillation BPH (benign prostatic hyperplasia) Carotid artery stenosis Cervical spondylosis (~2013) Coronary artery disease Essential hypertension (05/05/15) Gastric outlet obstruction Herniated disc (~2013) Hx MRSA infection (Unknown) Neoplasm of uncertain behavior of skin Nephrolithiasis Parkinsonism Squamous cell carcinoma (Unknown) Symptomatic bradycardia (01/07/16) Surgical History History of carpal tunnel surgery (1989) Hx of cataract extraction (2015) Hx of laminectomy (~1971) Hx of shoulder replacement (~2010) S/P cervical discectomy (10/2013) S/P coronary artery stent placement S/P placement of cardiac pacemaker (08/2015) Status post lumbar spine surgery for decompression of spinal cord (~1992) Family History Father Heart disease Mother Heart disease Diabetes mellitus Social History marital status: household members: spouse lives independently: Yes 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 Smoking Status: Never smoker alcohol intake: current Smoking Status: Never smoker alcohol intake frequency: 0-2 drinks per day Substance Use Type: does not use Exam Initial Vital Signs Initial Vital Signs: Vital Signs Temperature 98.8 F 01/03/23 22:31 Pulse Rate 64 07/06/22 22:31 Respiratory Rate 18 07/06/22 22:31 Blood Pressure 131/68 07/06/22 22:31 Pulse Oximetry 96 07/06/22 22:31 Oxygen Delivery Method 07/06/22 22:31 Const General: cooperative and No ill appearing HENMT Head: normal to inspection and normocephalic Resp Effort & Inspection: normal respiratory effort Auscultation: clear to auscultation bilaterally Cardio Rate: tachycardic Rhythm: abnormal rhythm Skin Other: Small skin tear to lateral aspect of left elbow Neuro General: patient alert, patient awake and moves all extremities Extrem Other: Patient with obvious shortening and internal rotation of the right hip. Left hip and bilateral upper extremities unremarkable Procedures Orthopedic Joint Reduction Joint #1: Side: right Joint Reduction Location: hip Analgesia: procedural sedation Technique used: traction/counter-traction Post-reduction neuro exam: no change Post-reduction vascular: no change Post Reduction X-Ray Obtained: Yes Post Reduction X-Ray Results: reduced Splint Applied: Yes Patient Tolerated Procedure: Well and No complications Orthopedic Splinting/Casting Injury #1: Side: right Lower Extremity Injury Location: knee Lower Extremity Immobilizer: knee immobilizer Post splinting neuro exam: no change Post splinting vascular exam: no change Placed by: Provider Procedural Sedation Consent signed: Yes Time out performed: Yes Indication: fracture/dislocation reduction ASA Class: II Mallampati Airway Classification: Class III Preparation: media monitor applied, pulse oximeter, capnometry used, supplemental O2 applied and IV secured IV Propofol dose (mg): 60 Intraservice time/total sedation time (min): 20 ED Sedation Level: Moderate (Concious) Patient Tolerated Procedure: Well Complications: hypoxia Interventions: Airway repositioned and Assist by BVM Course Orders Ordered: ED Orders 07/06/22 22:45 XR hip w pel if done RT 2V Stat 07/06/22 23:23 RT Consult Eval and Treat Now 07/07/22 01:19 XR hip w pel if done RT 2V Stat Sodium Chloride (Normal Saline 0.9%) 1,000 mls @ 125 mls/hr IV CONT BRANDIE Last Admin: 07/07/22 00:30 Dose: 125 mls/hr Documented By: DELFINO Discontinued Medications Hydromorphone HCl (Hydromorphone 1 Mg Inj) 1 mg IV NOW ONE Stop: 07/06/22 22:56 Last Admin: 07/06/22 23:05 Dose: 1 mg Documented By: THOMAS Propofol (Propofol 200 Mg/20 Ml Vial) 100 mg IV NOW ONE Stop: 07/06/22 23:24 Last Admin: 07/07/22 01:15 Dose: 60 mg Documented By: DELFINO Vital Signs Vital signs: Vital Signs - 8 hr 07/06/22 22:31 07/07/22 00:32 07/07/22 01:00 Temperature 98.8 F Pulse Rate 64 60 60 Respiratory Rate 18 34 H 26 H Blood Pressure 131/68 Pulse Oximetry 96 97 95 Oxygen Delivery Method Room Air 07/07/22 01:12 07/07/22 01:12 07/07/22 01:26 Temperature Pulse Rate 61 60 Respiratory Rate 37 H 18 Blood Pressure 174/87 H Pulse Oximetry 96 97 Oxygen Delivery Method 07/07/22 01:26 07/07/22 01:43 07/07/22 01:43 Temperature Pulse Rate 61 Respiratory Rate 13 Blood Pressure 139/65 138/71 Pulse Oximetry 100 Oxygen Delivery Method 07/07/22 01:45 07/07/22 01:45 07/07/22 01:50 Temperature Pulse Rate 60 60 Respiratory Rate 11 L 13 Blood Pressure 132/75 Pulse Oximetry 96 95 Oxygen Delivery Method 07/07/22 01:50 07/07/22 01:55 07/07/22 01:55 Temperature Pulse Rate 60 Respiratory Rate 10 L Blood Pressure 128/67 125/67 Pulse Oximetry 94 Oxygen Delivery Method 07/07/22 02:00 07/07/22 02:00 07/07/22 02:05 Temperature Pulse Rate 60 Respiratory Rate 13 Blood Pressure 113/69 114/69 Pulse Oximetry 94 Oxygen Delivery Method 07/07/22 02:05 07/07/22 02:10 07/07/22 02:10 Temperature Pulse Rate 60 60 Respiratory Rate 13 12 Blood Pressure 113/75 Pulse Oximetry 94 93 Oxygen Delivery Method 07/07/22 02:15 07/07/22 02:15 07/07/22 02:21 Temperature Pulse Rate 60 61 Respiratory Rate 12 13 Blood Pressure 112/71 Pulse Oximetry 94 93 Oxygen Delivery Method 07/07/22 02:21 07/07/22 02:25 07/07/22 02:25 Temperature Pulse Rate 60 Respiratory Rate 15 Blood Pressure 108/93 H 114/61 Pulse Oximetry 94 Oxygen Delivery Method 07/07/22 02:30 07/07/22 02:30 Temperature Pulse Rate 60 Respiratory Rate 16 Blood Pressure 111/65 Pulse Oximetry 93 Oxygen Delivery Method MDM - Extremity Injury (Lower) Imaging Data Extremity x-ray #1: Radiologist's Impression: [address] [address] XRay Report Signed Patient: Jaspreet Tobin MR#: [id number] : 1945 Acct:[id number] Age/Sex: 76 / M Date of Service: 07/06/22 Loc: ED Accession Number: [id number] ?? Procedure: XR hip w pel if done RT 2V Ordering Provider: Reginald Campa D.O. PROCEDURE:? XR HIP W PEL IF DONE RT 2V ? INDICATIONS:? eval for dislocation/fracture ? TECHNIQUE:? AP pelvis with lateral view of the right hip. ? COMPARISON:? None. ? FINDINGS:? ? Bones:? There is posterolateral dislocation of a right hip prosthesis.? No definite associated fracture identified.? Pelvic ring appears intact.? No suspicious bony lesions. ?Postsurgical changes demonstrated within the lower lumbar spine. ? Soft tissues:? The visualized bowel gas pattern is normal.? No suspicious soft tissue calcifications.? ? ? IMPRESSION:? ? 1. Posterolateral dislocation of right hip prosthesis. ? ? ? Dictated by: Aris Cordboa M.D. on 07/07/2022 at 0:13 ? ? Approved by: Aris Cordoba M.D. on 07/07/2022 at 0:14 Extremity x-ray #2: Radiologist's Impression: [address] [address] XRay Report Signed Patient: Jaspreet Tobin MR#: [id number] : 1945 Acct:[id number] Age/Sex: 76 / M Date of Service: 07/07/22 Loc: ED Accession Number: [id number] ?? Procedure: XR hip w pel if done RT 2V Ordering Provider: Reginald Campa D.O. PROCEDURE:? XR HIP W PEL IF DONE RT 2V ? INDICATIONS:? post reduction ? TECHNIQUE:? AP pelvis with lateral view of the right hip. ? COMPARISON:? [facility], CR, XR HIP W PEL IF DONE RT 2V, 07/06/2022, 22:46. ? FINDINGS:? ? Bones:? There is interval reduction of the previously dislocated right hip prosthesis.? The hip prosthesis appears congruent.? No discrete fracture identified.? Pelvic ring appears intact. ? Soft tissues:? The visualized bowel gas pattern is normal.? No suspicious soft tissue calcifications.? ? ? IMPRESSION:? ? 1. Interval reduction of the previously dislocated right hip prosthesis.? No definite fracture identified.? Dictated by: Aris Cordoba M.D. on 07/07/2022 at 2:22 ? ? Approved by: Aris Cordoba M.D. on 07/07/2022 at 2:23?? [facility] Narrative Medical decision making narrative: Patient with a right hip dislocation that was reduced as described above without complication. Patient tolerated the procedural sedation well. He is placed in a knee immobilizer to try to help keep him out of a position where he could dislocate again. I had a discussion with him regarding his symptoms. He states he was told by Orthopedic surgery that he potentially needing revision however given his age he would like to hold on any of that for now. Will discharge patient home with instructions follow-up with primary doctor and also his orthopedic surgeon. Discharge Plan Departure Patient Disposition: Home Clinical Impression: Hip dislocation, right Activity Restrictions/Additional Instructions: I recommend that you contact your primary doctor and also your orthopedic surgeon for a follow-up. The knee immobilizer that you were placed in today can be removed whenever you feel like your hip as strong. You can walk when your hip with the knee immobilizer. You can take it off to shower. Return to the emergency department for any new symptoms. Prescriptions: No Action clopidogrel 75 mg tablet 75 mg PO DAILY levetiracetam [Keppra] 500 mg tablet 500 mg PO BID finasteride 5 mg tablet 5 mg PO QDAY Qty: 90 3RF epinephrine [EpiPen] 0.3 mg/0.3 mL auto-injector 0.3 mg IM ONCE Qty: 1 11RF carbidopa-levodopa 25-100 mg tablet 1 tab PO TID tamsulosin 0.4 mg capsule 0.4 mg PO DAILY Qty: 90 3RF aspirin [Adult Low Dose Aspirin] 81 mg tablet,delayed release (DR/EC) 81 mg PO DAILY metoprolol tartrate 50 mg tablet 50 mg PO BID Qty: 180 3RF atorvastatin 40 mg tablet 40 mg PO DAILY Qty: 90 1RF gabapentin 300 mg capsule 300 mg PO BEDTIME PRN (Reason: Sciatica) Qty: 90 1RF warfarin 4 mg tablet See Rx Instructions PO .COMPLEX Rx Instructions: 2 mg daily, or as directed. tramadol 50 mg tablet 50 mg PO 5XD PRN (Reason: pain) Qty: 150 0RF Rx Instructions: EXEMPT prednisone 5 mg tablet 5 mg PO DAILY hydrochlorothiazide 12.5 mg capsule 12.5 mg PO DAILY probenecid-colchicine 500-0.5 mg tablet 1 tab PO BID cyclobenzaprine 5 mg tablet 5 mg PO TID PRN (Reason: muscle spasm) Qty: 10 0RF Referrals: Deep Dao MD [Primary Care Provider] - Stand Alone Forms: Patient Portal/API
[2022-07-06] MEDS: HYDROMORPHONE 1 MG INJ IV (23:05)
[2022-07-07] VITALS (18 sets, daily range): BP systolic 108–174; BP diastolic 61–93; PULSE 60–67; RESP 10–37; O2SAT 93–100
[2022-07-07] MEDS: SODIUM CHLORIDE 0.9% 1,000 ML 125 ML IV (00:30)
--- NOTE | 2022-07-07 00:30 | PC.NURSE ---
Moved to room 10 for procedural sedation to reduce the right hip - room prepared for procedure - suction ready - ambu back present - pt placed on library monitor with cycling BP and continuous pulse ox - RT aware
--- NOTE | 2022-07-07 01:00 | PC.NURSE ---
MD at bedside for procedural sedation - RT to bedside - consents signed - pt denies questions at this time
--- NOTE | 2022-07-07 01:05 | PC.NURSE ---
time out pause performed at this time - procedure started
--- NOTE | 2022-07-07 01:12 | PC.NURSE ---
Propofol 60 mg given IV push by Dr. Campa
--- NOTE | 2022-07-07 01:13 | PC.NURSE ---
Reduction procedure started
[2022-07-07] MEDS: propofoL 200 MG/20 ML VIAL 100 MG IV (01:15)
--- NOTE | 2022-07-07 01:16 | PC.NURSE ---
right hip reduced - procedure completed - tolerated well - remains sedate
--- NOTE | 2022-07-07 01:19 | DI.RAD.S_ITS ---
PROCEDURE: XR HIP W PEL IF DONE RT 2V INDICATIONS: post reduction TECHNIQUE: AP pelvis with lateral view of the right hip. COMPARISON: [facility], CR, XR HIP W PEL IF DONE RT 2V, 07/06/2022, 22:46. FINDINGS: Bones: There is interval reduction of the previously dislocated right hip prosthesis. The hip prosthesis appears congruent. No discrete fracture identified. Pelvic ring appears intact. Soft tissues: The visualized bowel gas pattern is normal. No suspicious soft tissue calcifications. IMPRESSION: 1. Interval reduction of the previously dislocated right hip prosthesis. No definite fracture identified. Dictated by: Aris Cordoba M.D. on 07/07/2022 at 2:22 Approved by: Aris Cordoba M.D. on 07/07/2022 at 2:23
--- NOTE | 2022-07-07 01:25 | PC.NURSE ---
responds to voice - more awake at this time - responding appropriately
--- NOTE | 2022-07-07 01:28 | PC.NURSE ---
to xr via stretcher with tech
--- NOTE | 2022-07-07 01:39 | PC.NURSE ---
returns to the room from radiology via stretcher - awake and alert - responding appropriately
--- NOTE | 2022-07-07 03:00 | PC.NURSE ---
Pt removed from monitor etc... pt to be DC'd home - to pick him up in the morning - lights dimmed for comfort - pt left to sleep until his can arrive
--- NOTE | 2022-07-07 04:00 | PC.NURSE ---
Resting quietly in NAD - no needs voiced - knee immobilizer in place - awaiting family in the morning
--- NOTE | 2022-07-07 06:00 | PC.NURSE ---
No changes in pt status
--- NOTE | 2022-07-07 07:00 | PC.NURSE ---
spoke to on phone - calling a neighbor to come get the pt from the ER
--- NOTE | 2022-07-07 07:22 | PC.NURSE ---
report to dayshift RN team - care relinquished at this time
== END 2022-07-07 10:14 | disposition home or self-care (01) ==
PROVIDERS: Emergency Provider Emergency Medicine; Family Provider Student in an Organized Health Care Education/Training Program; PCP Student in an Organized Health Care Education/Training Program
DX: S73.004A Unspecified dislocation of right hip, initial encounter (principal); Z79.01 Long term (current) use of anticoagulants
CPT/HCPCS: 27265; 73502; 96374; 99152; 99284; J1170; J2704

== ENCOUNTER → 2022-08-16 10:37 | Outpatient (CLI) | payer MEDICARE, OTHER, SELFPAY ==
[2022-08-16 12:12] LABS: Blood Urea Nitrogen 12 mg/dL (9-20); Calcium 8.2 mg/dL (8.4-10.2); Carbon Dioxide 33 mmol/L (22-32); Chloride 99 mmol/L (98-107); Estimated Glomerular Filt Rate > 60 mL/min (>60); Glucose 99 mg/dL (80-110); HEMOLYSIS < 15 (0-50); Potassium 3.3 mmol/L (3.4-5.1); Sodium 139 mmol/L (137-145)
== END ==
PROVIDERS: Family Provider Student in an Organized Health Care Education/Training Program; PCP Student in an Organized Health Care Education/Training Program; Referring Provider Nurse Practitioner Family; Visit Provider Nurse Practitioner Family
DX: E87.6 Hypokalemia (principal)
CPT/HCPCS: 36415; 80048

== ENCOUNTER → 2022-08-17 13:53 | Outpatient (CLI) | payer MEDICARE, OTHER, SELFPAY ==
--- NOTE | 2022-08-17 | DI.RAD.S_ITS ---
PROCEDURE: XR ABDOMEN 1V INDICATIONS: Calculus of kidney TECHNIQUE: One view of the abdomen acquired. COMPARISON: None. FINDINGS: Convex left lumbar scoliosis present. Interbody fusion with will and screw instrumentation lower lumbar spine present. Mid lumbar spine decompressive laminectomies noted. Total right hip arthroplasty present. No evidence of fracture. Dual-chamber pacemaker leads noted. Heart size enlarged. Nonobstructive bowel gas pattern. Several calculi project over both renal shadows, largest on the left measures 8 mm, largest on the right also measures 8 mm. Several calcifications in the pelvis probably reflect phleboliths IMPRESSION: Bilateral nephrolithiasis measure up to 8 mm. Extensive lumbar spine instrumentation, decompression and right total hip arthroplasty Approved by: Kolby Quan M.D. on 08/17/2022 at 17:33
== END ==
PROVIDERS: Family Provider Student in an Organized Health Care Education/Training Program; PCP Student in an Organized Health Care Education/Training Program; Referring Provider Urology; Visit Provider Urology
DX: N20.0 Calculus of kidney (principal); I51.7 Cardiomegaly; Z98.1 Arthrodesis status; Z96.641 Presence of right artificial hip joint; Z95.0 Presence of cardiac pacemaker
CPT/HCPCS: 74018

== ENCOUNTER 2022-09-02 12:58 | Emergency (ER) | payer MEDICARE, OTHER, SELFPAY ==
[2022-09-02 13:38] VITALS: BP 111/56; PULSE 62; RESP 16; TEMP 36.5; O2SAT 100; BMI 24.3
--- NOTE | 2022-09-02 13:45 | DI.CT.S_ITS ---
PROCEDURE: CT HEAD/BRAIN WO CON INDICATIONS: elevated INR, change in gait TECHNIQUE: Noncontrast 4.5 mm thick angled axial sections acquired from the foramen magnum to the vertex, with coronal and sagittal reformats. For radiation dose reduction, the following was used: automated exposure control, adjustment of mA and/or kV according to patient size. COMPARISON: [facility], CT, CT HEAD/BRAIN WO CON, 03/09/2021, 9:57. [facility], CT, CT ANGIO HEAD AND NECK, 11/26/2020, 12:01. [facility], MR, MR BRAIN WITHOUT CONTRAST, 09/18/2021, 12:40. FINDINGS: Image quality: Excellent. CSF spaces: Basal cisterns are patent. No extra-axial fluid collections. The ventricles are symmetric in size and shape. Brain: No intracranial bleeds or masses. There is cerebral volume loss for age, with resultant ventricular and sulcal prominence. There are periventricular and deep white matter chronic small vessel ischemic changes. There is intracranial internal carotid artery atherosclerosis. Skull and face: Calvarium and visualized facial bones appear intact, without suspicious lesions. Sinuses: Visualized sinuses and mastoids are clear. IMPRESSION: No acute intracranial hemorrhage is seen. No acute intracranial process is seen. Dictated by: Chico Fragoso M.D. on 09/02/2022 at 13:02 Approved by: Chico Fragoso M.D. on 09/02/2022 at 13:02
[2022-09-02 14:22] LABS: Add Manual Diff / Slide Review NO; Basophils Absolute Auto 100 /uL (0-100); Basophils Percent Auto 0.9 % (0-2); Eosinophils Absolute Auto 300 /uL (0-450); Eosinophils Percent Auto 4.9 % (2-4); Hematocrit 43.2 % (41-53); Hemoglobin 14.5 g/dL (13.5-17.5); Lymphocytes Absolute Auto 1400 /uL (1100-4500); Mean Corpuscular HGB Conc 33.5 % (30-36); Mean Corpuscular Hemoglobin 31.9 PG (26-34); Mean Corpuscular Volume 95.4 fL (80-100); Monocytes Absolute Auto 800 /uL (0-900); Monocytes Percent Auto 11.1 % (3-14); Neutrophils Absolute Auto 4400 /uL (1500-7000); Neutrophils Percent Auto 63.1 % (50-75); Platelet Count 210 X10^3/uL (150-400); Red Blood Cell Count 4.53 X10^6/uL (4.5-5.9); Red Cell Distribution Width 15.4 % (11.6-14.8); White Blood Cell Count 6.9 X10^3/uL (4.5-11.0)
[2022-09-02 14:36] LABS: Alanine Aminotransferase 10 IU/L (<50); Albumin 3.6 g/dL (3.5-5.0); Albumin Globulin Ratio 1.3 (1.0-2.8); Alkaline Phosphatase 68 U/L (38-126); Aspartate Aminotransferase 45 IU/L (17-59); BUN Creatinine Ratio 13.3 (6-22); Bilirubin Total 0.6 mg/dL (0.2-1.3); Blood Urea Nitrogen 11 mg/dL (9-20); Calcium 8.3 mg/dL (8.4-10.2); Carbon Dioxide 32 mmol/L (22-32); Chloride 101 mmol/L (98-107); Estimated Glomerular Filt Rate > 60 mL/min (>60); Globulin 2.7 g/dL (1.7-4.1); Glucose 101 mg/dL (80-110); HEMOLYSIS 17 (0-50); Sodium 137 mmol/L (137-145); Total Protein 6.3 g/dL (6.3-8.2)
[2022-09-02 14:39] LABS: Prothrombin Time 60.1 SECONDS (10.1-12.7)
[2022-09-02 14:41] LABS: INR 5.1 (0.9-1.3)
[2022-09-02 15:02] VITALS: PULSE 61; O2SAT 98
[2022-09-02 15:08] VITALS: BP 135/60; PULSE 60; O2SAT 98
[2022-09-02 15:16] LABS: COVID19 -Nasal RAPID Negative (Negative)
[2022-09-02 15:30] VITALS: BP 117/72; PULSE 60; O2SAT 97
[2022-09-02 16:03] VITALS: BP 137/63
--- NOTE | 2022-09-07 10:08 | ED_ITS ---
HPI - Recheck/Abnormal Lab/Rx General Chief Complaint: Recheck/Abnormal Lab/Rx Stated Complaint: INR 7.5 t-2, Eye issues Time Seen by Provider: 09/02/22 13:42 Source: patient Mode of arrival: Ambulatory History of Present Illness HPI narrative: 76-year-old male presenting with elevated INR for the last 2 days, conjunctival hemorrhage. Patient reports noting his INR at [facility] 7.5 and then downtrending yesterday to 6. Patient has been holding his warfarin for the last 2 days. Developed a conjunctival hemorrhage today and presents for repeat evaluation. Patient denies acute pain or other areas of hemorrhage. No dark or tarry stools, no hematemesis. No headache, no recent falls. Related Data Home Medications Medication Instructions Recorded Confirmed clopidogrel 75 mg tablet 75 mg PO DAILY 01/12/18 01/25/22 levetiracetam 500 mg tablet 500 mg PO BID 06/15/19 01/25/22 (Keppra) prednisone 5 mg tablet 5 mg PO DAILY 01/18/20 01/25/22 probenecid 500 mg-colchicine 0.5 1 tab PO BID 10/27/20 01/25/22 mg tablet carbidopa 25 mg-levodopa 100 mg 1 tab PO TID 02/27/21 01/25/22 tablet aspirin 81 mg tablet,delayed 81 mg PO DAILY 01/14/22 01/25/22 release (Adult Low Dose Aspirin) Previous Rx's Medication Instructions Recorded finasteride 5 mg tablet 5 mg PO QDAY #90 tabs 10/24/19 epinephrine 0.3 mg/0.3 mL 0.3 mg (0.3 mL) IM ONCE #1 ea 02/16/21 injection, auto-injector (EpiPen) cyclobenzaprine 5 mg tablet 5 mg PO TID PRN muscle spasm #10 03/09/21 tabs tamsulosin 0.4 mg capsule 0.4 mg PO DAILY #90 caps 08/19/21 metoprolol tartrate 50 mg tablet 50 mg PO BID #180 tabs 01/21/22 gabapentin 300 mg capsule 300 mg PO BEDTIME PRN Sciatica #90 03/17/22 caps tramadol 50 mg tablet 50 mg PO 5XD PRN pain #150 tabs 08/09/22 atorvastatin 40 mg tablet 40 mg PO DAILY #90 tabs 08/16/22 warfarin 4 mg tablet See Rx Instructions .Route 09/02/22 .COMPLEX #90 tabs Allergies Allergy/AdvReac Type Severity Reaction Status Date / Time adhesive tape [ADHESIVE TAPE] Allergy Intermediate Blistered Verified 09/02/22 13:43 skin Anesthetics - Amide Type - Allergy Unknown extremly Verified 09/02/22 13:43 Select A sensitive [ANESTHETICS - AMIDE TYPE] to anesthetics Anesthetics - Ernst Type- Allergy Unknown extremely Verified 09/02/22 13:43 Parabens sensitive [ANESTHETICS - ERNST TYPE] to anesthetics Patient History Medical History Atrial fibrillation BPH (benign prostatic hyperplasia) Carotid artery stenosis Cervical spondylosis (~2013) Coronary artery disease Essential hypertension (05/05/15) Gastric outlet obstruction Herniated disc (~2013) Hx MRSA infection (Unknown) Neoplasm of uncertain behavior of skin Nephrolithiasis Parkinsonism Squamous cell carcinoma (Unknown) Symptomatic bradycardia (01/07/16) Surgical History History of carpal tunnel surgery (1989) Hx of cataract extraction (2015) Hx of laminectomy (~1971) Hx of shoulder replacement (~2010) S/P cervical discectomy (10/2013) S/P coronary artery stent placement S/P placement of cardiac pacemaker (08/2015) Status post lumbar spine surgery for decompression of spinal cord (~1992) Family History Father Heart disease Mother Heart disease Diabetes mellitus Social History marital status: household members: spouse lives independently: Yes 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 Nursing note reviewed Constitutional: interactive HENT: Moist mucous membranes EYES: No scleral icterus, left conjunctival hemorrhage, no hyphema NECK: no masses CV: Well perfused peripherally, no cyanosis present PULM: Unlabored respirations, symmetric chest rise ABD: Non-distended MS: No gross deformities, no asymmetric edema noted SKIN: Warm and dry. PSYCH: Appropriate affect NEURO: Follows simple commands, moves extremities, interactive with exam Initial Vital Signs Initial Vital Signs: Vital Signs Temperature 97.7 F 09/02/22 13:38 Pulse Rate 62 09/02/22 13:38 Respiratory Rate 16 09/02/22 13:38 Blood Pressure 111/56 L 09/02/22 13:38 Pulse Oximetry 100 09/02/22 13:38 Oxygen Delivery Method Room Air 09/02/22 13:38 Course Orders Ordered: Discontinued Medications Phytonadione (Phytonadione (Vit K1) 5 Mg Tablet) 2.5 mg PO NOW ONE Stop: 09/02/22 13:46 Last Admin: 09/02/22 16:08 Dose: Not Given Documented By: RB MDM - Recheck/Abnormal Lab/Rx Lab Data 09/02/22 14:07 09/02/22 14:07 Labs: Lab Results 09/02/22 09/02/22 09/02/22 Range/Units 14:07 14:07 14:07 WBC 6.9 (4.5-11.0) X10^3/uL RBC 4.53 (4.5-5.9) X10^6/uL Hgb 14.5 (13.5-17.5) g/dL Hct 43.2 (41-53) % MCV 95.4 (80-100) fL MCH 31.9 (26-34) PG MCHC 33.5 (30-36) % RDW 15.4 H (11.6-14.8) % Plt Count 210 (150-400) X10^3/uL Neut % (Auto) 63.1 (50-75) % Lymph % (Auto) 20.0 L (25-40) % Divide % (Auto) 11.1 (3-14) % Eos % (Auto) 4.9 H (2-4) % Baso % (Auto) 0.9 (0-2) % Neut # (Auto) 4400 (6739-7810) /uL Lymph # (Auto) 1400 (4363-8447) /uL Divide # (Auto) 800 (0-900) /uL Eos # (Auto) 300 (0-450) /uL Baso # (Auto) 100 (0-100) /uL PT 60.1 H (10.1-12.7) SECONDS INR 5.1 H* (0.9-1.3) Sodium 137 (137-145) mmol/L Potassium 4.0 (3.4-5.1) mmol/L Chloride 101 (98-107) mmol/L Carbon Dioxide 32 (22-32) mmol/L BUN 11 (9-20) mg/dL Creatinine 0.83 (0.66-1.25) mg/dL Estimated GFR > 60 (>60) mL/min BUN/Creatinine Ratio 13.3 (6-22) Glucose 101 (80-110) mg/dL Calcium 8.3 L (8.4-10.2) mg/dL Total Bilirubin 0.6 (0.2-1.3) mg/dL AST 45 (17-59) IU/L ALT 10 (<50) IU/L Alkaline Phosphatase 68 (38-126) U/L Total Protein 6.3 (6.3-8.2) g/dL Albumin 3.6 (3.5-5.0) g/dL Globulin 2.7 (1.7-4.1) g/dL Albumin/Globulin Ratio 1.3 (1.0-2.8) SARS-CoV-2 (PCR) (Negative) 09/02/22 Range/Units 15:01 WBC (4.5-11.0) X10^3/uL RBC (4.5-5.9) X10^6/uL Hgb (13.5-17.5) g/dL Hct (41-53) % MCV (80-100) fL MCH (26-34) PG MCHC (30-36) % RDW (11.6-14.8) % Plt Count (150-400) X10^3/uL Neut % (Auto) (50-75) % Lymph % (Auto) (25-40) % Divide % (Auto) (3-14) % Eos % (Auto) (2-4) % Baso % (Auto) (0-2) % Neut # (Auto) (6967-0984) /uL Lymph # (Auto) (4045-8924) /uL Divide # (Auto) (0-900) /uL Eos # (Auto) (0-450) /uL Baso # (Auto) (0-100) /uL PT (10.1-12.7) SECONDS INR (0.9-1.3) Sodium (137-145) mmol/L Potassium (3.4-5.1) mmol/L Chloride (98-107) mmol/L Carbon Dioxide (22-32) mmol/L BUN (9-20) mg/dL Creatinine (0.66-1.25) mg/dL Estimated GFR (>60) mL/min BUN/Creatinine Ratio (6-22) Glucose (80-110) mg/dL Calcium (8.4-10.2) mg/dL Total Bilirubin (0.2-1.3) mg/dL AST (17-59) IU/L ALT (<50) IU/L Alkaline Phosphatase (38-126) U/L Total Protein (6.3-8.2) g/dL Albumin (3.5-5.0) g/dL Globulin (1.7-4.1) g/dL Albumin/Globulin Ratio (1.0-2.8) SARS-CoV-2 (PCR) Negative (Negative) MDM Narrative Medical decision making narrative: 76-year-old male presenting with elevated INR for the last 2 days while on warfarin. On presentation, vital signs notable for no significant abnormalities. Physical exam notable for well-appearing 76-year-old male in no acute distress, reassuring cardiopulmonary exam, benign abdomen, normal neurologic exam, ocular exam notable for small conjunctival hemorrhage. Initial concern for isolated lab abnormality with supratherapeutic INR, occult significant bleeding, symptomatic anemia. Repeat labs obtained in the emergency department notable for downtrending INR at 5.1. No indications for intracranial imaging given patient is well-appearing, INRs downtrending, patient has no headache, no new neurologic symptoms, and patient with stable exam while in the emergency department. Discussed findings with patient and family member at bedside. Given INRs rapidly trending down, discussed plan for holding INR and following closely in outpatient clinic. Vitamin K was deferred given patient's INRs rapidly downtrending. Return precautions were discussed. Discharge Plan Departure Patient Disposition: Home Clinical Impression: Supratherapeutic INR Activity Restrictions/Additional Instructions: *You have been diagnosed with [ ] *What to do: * Please hold your warfarin for the next 2 days, follow up with your outpatient provider to discuss changing your warfarin dosing. Please return to the emergency department if you develop any new or worsening symptoms. *Please follow up with your primary care provider in 1-2 days, call for an appointment. Let them know you were seen in the Emergency Department and that we ask that you be seen in follow up. We will electronically transmit a record of today's note if your PCP is in our system *If you do not have a primary care provider please contact the [facility] Resource line at [phone]. They will ask some questions about your medical history and help get you set up with a doctor in the community. *Return to Emergency Department if you should have any new, worsening or concerning symptoms, such as [fever greater than 101 F, shaking chills, worsening pain, persistent vomiting or other bothersome symptoms] Prescriptions: No Action clopidogrel 75 mg tablet 75 mg PO DAILY levetiracetam [Keppra] 500 mg tablet 500 mg PO BID finasteride 5 mg tablet 5 mg PO QDAY Qty: 90 3RF epinephrine [EpiPen] 0.3 mg/0.3 mL auto-injector 0.3 mg IM ONCE Qty: 1 11RF carbidopa-levodopa 25-100 mg tablet 1 tab PO TID tamsulosin 0.4 mg capsule 0.4 mg PO DAILY Qty: 90 3RF aspirin [Adult Low Dose Aspirin] 81 mg tablet,delayed release (DR/EC) 81 mg PO DAILY metoprolol tartrate 50 mg tablet 50 mg PO BID Qty: 180 3RF gabapentin 300 mg capsule 300 mg PO BEDTIME PRN (Reason: Sciatica) Qty: 90 1RF tramadol 50 mg tablet 50 mg PO 5XD PRN (Reason: pain) Qty: 150 3RF Rx Instructions: EXEMPT atorvastatin 40 mg tablet 40 mg PO DAILY Qty: 90 1RF warfarin 4 mg tablet See Rx Instructions .ROUTE .COMPLEX Qty: 90 2RF Dose Instruction: TAKE 1 TABLET BY MOUTH DAILY TUESDAY AND TUESDAY. 2MG ALL OTHER DAYS. Rx Instructions: TAKE 1 TABLET BY MOUTH DAILY TUESDAY AND TUESDAY. 2MG ALL OTHER DAYS. prednisone 5 mg tablet 5 mg PO DAILY probenecid-colchicine 500-0.5 mg tablet 1 tab PO BID cyclobenzaprine 5 mg tablet 5 mg PO TID PRN (Reason: muscle spasm) Qty: 10 0RF Referrals: Deep Dao MD [Primary Care Provider] - Stand Alone Forms: Patient Portal/API
== END 2022-09-02 16:23 | disposition home or self-care (01) ==
PROVIDERS: Emergency Provider Emergency Medicine; Family Provider Student in an Organized Health Care Education/Training Program; PCP Student in an Organized Health Care Education/Training Program
DX: R79.1 Abnormal coagulation profile (principal); H53.9 Unspecified visual disturbance; Z20.822 Contact with and (suspected) exposure to COVID-19
CPT/HCPCS: 36415; 70450; 80053; 85025; 85610; 87635; 99283; 99284; C9803

== ENCOUNTER → 2022-09-27 14:25 | Outpatient (CLI) | payer MEDICARE, OTHER, SELFPAY ==
--- NOTE | 2022-09-27 14:28 | DI.RAD.S_ITS ---
PROCEDURE: XR CERVICAL SPINE 4V OR 5V INDICATIONS: Neck pain TECHNIQUE: 5 views of the cervical spine acquired. COMPARISON: None. FINDINGS: Bones: Imaging findings show plate and screw fixation from C4 through T1. The the 1st plate extends from C4 through C6. The 2nd plate fuses C7-T1. Also the superior plate appears to be impinging on on the disc space at C3-C4. Given the imaging findings I would recommend a CT of the cervical spine for further characterization of the osseous structures as well as degenerative change. No fractures or dislocations to the C7 level. There appears to be at least a moderate degree of neural foraminal stenosis present at C3-C4. Soft tissues: No prevertebral soft tissue swelling. IMPRESSION: 1. Anterior plate and screw fixation from C4 through T1. 2. The surgical plate appears to impinge on the disc space at C3-C4. 3. At least a moderate degree of bilateral neural foraminal stenosis is present at C3-C4. 3. Given the above findings I would recommend a CT of the cervical spine for character further characterization of the surgical hardware and degenerative change. Dictated by: Reginald Norris M.D. on 09/27/2022 at 15:39 Approved by: Reginald Norris M.D. on 09/27/2022 at 15:47
== END ==
PROVIDERS: Family Provider Student in an Organized Health Care Education/Training Program; PCP Student in an Organized Health Care Education/Training Program; Referring Provider Anesthesiology; Visit Provider Anesthesiology
DX: M48.02 Spinal stenosis, cervical region (principal); M54.2 Cervicalgia; M25.512 Pain in left shoulder; G89.29 Other chronic pain; Z98.1 Arthrodesis status
CPT/HCPCS: 72050; 99214

== ENCOUNTER → 2022-09-30 14:48 | Outpatient (CLI) | payer MEDICARE, OTHER, SELFPAY ==
--- NOTE | 2022-09-30 14:49 | DI.CT.S_ITS ---
PROCEDURE: CT CERVICAL SPINE WO CON INDICATIONS: Neck pain s/p ACDF TECHNIQUE: Noncontrast 3 mm thick sections acquired from the skull base to the T4 level. Sagittal and coronal reformats were then constructed. For radiation dose reduction, the following was used: automated exposure control, adjustment of mA and/or kV according to patient size. COMPARISON: [facility], CR, XR CERVICAL SPINE 4V OR 5V, 09/27/2022, 14:26. [facility], CT, CT CERVICAL SPINE WO CON, 03/09/2021, 9:57. FINDINGS: Image quality: Excellent. Bones: No fractures or dislocations. Visualized superior ribs are intact. An anteriorly placed disc fusion device can be seen at the C3-C4 level. Anterior fixation hardware can be seen C4 through T1, without findings of failure or loosening. Along the anterior aspect of the C3-C4 level, there is partial fusion of the C3 along the anterior aspect of the fusion plate. Mild anterolisthesis is seen at the C3-C4 level. Disc spacers are seen throughout the fused region. No definite findings of hardware failure or hardware loosening can be seen. Moderate generalized degenerative changes are seen, which are worst involving the C1-C2 interface anteriorly. Calcified pannus can be seen adjacent to the dens Soft tissues: Prevertebral soft tissues are normal in thickness. No paravertebral hematomas. No apical pneumothoraces. Extensive atherosclerotic calcification is seen. Left-sided pacer leads are seen. IMPRESSION: Unremarkable extensive postoperative hardware, without eric findings of failure or loosening. Dictated by: Chico Fragoso M.D. on 09/30/2022 at 15:58 Approved by: Chico Fragoso M.D. on 09/30/2022 at 16:01
== END ==
PROVIDERS: Family Provider Student in an Organized Health Care Education/Training Program; PCP Student in an Organized Health Care Education/Training Program; Referring Provider Anesthesiology; Visit Provider Anesthesiology
DX: M50.31 Other cervical disc degeneration, high cervical region (principal); Z98.1 Arthrodesis status
CPT/HCPCS: 72125

== ENCOUNTER 2022-11-09 11:38 | Emergency (ER) | payer MEDICARE, OTHER, SELFPAY ==
[2022-11-09 11:54] VITALS: BP 147/88; PULSE 60; RESP 16; TEMP 36.8; O2SAT 98; BMI 22.6
[2022-11-09 14:31] VITALS: BP 145/84; PULSE 60; RESP 16; O2SAT 99
--- NOTE | 2022-11-09 19:59 | ED_ITS ---
HPI - Skin/Abscess/Foreign Bdy <Julienne Pa PA-C - Last Filed: 11/09/22 20:04> General Chief complaint: Skin/Abscess/Foreign Body Stated complaint: R handleaking blood, was cauterized ystd, high INR Time Seen by Provider: 11/09/22 13:23 Source: patient Mode of arrival: Ambulatory History of Present Illness HPI narrative: 77-year-old male on warfarin sent to the ED for evaluation of oozing wounds on the left forearm and hand. Patient was recently diagnosed with a INR of 4.2, had multiple small wounds on his forearm and left hand that were oozing. Patient was seen at an outside hospital, the wounds were cauterized, patient was told to hold 2 nights of his Coumadin to get his INR back in the therapeutic range. This morning patient noted that a couple of his wounds continue to ooze until he put some Band-Aids on. In the ED, the Band-Aids are functioning well to apply pressure and stem the oozing. Patient is able to move all extremities. Denies any signs of infection. Related Data Home Medications Medication Instructions Recorded Confirmed clopidogrel 75 mg tablet 75 mg PO DAILY 01/12/18 11/11/22 levetiracetam 500 mg tablet 500 mg PO BID 06/15/19 11/11/22 (Keppra) prednisone 5 mg tablet 5 mg PO DAILY 01/18/20 11/11/22 probenecid 500 mg-colchicine 0.5 1 tab PO BID 10/27/20 11/11/22 mg tablet carbidopa 25 mg-levodopa 100 mg 1 tab PO TID 02/27/21 11/11/22 tablet leflunomide 20 mg tablet 20 mg PO DAILY 09/27/22 11/11/22 nitroglycerin 0.4 mg sublingual 0.4 mg sublingual Q5M PRN 09/27/22 11/11/22 tablet potassium chloride 10 mEq 10 meq PO 09/27/22 11/11/22 capsule,extended release Previous Rx's Medication Instructions Recorded finasteride 5 mg tablet 5 mg PO QDAY #90 tabs 10/24/19 tamsulosin 0.4 mg capsule 0.4 mg PO DAILY #90 caps 08/19/21 metoprolol tartrate 50 mg tablet 50 mg PO BID #180 tabs 01/21/22 tramadol 50 mg tablet 50 mg PO 5XD PRN pain #150 tabs 08/09/22 atorvastatin 40 mg tablet 40 mg PO DAILY #90 tabs 08/16/22 warfarin 4 mg tablet See Rx Instructions .Route 09/02/22 .COMPLEX #90 tabs gabapentin 300 mg capsule 300 mg PO BEDTIME PRN Sciatica #90 09/09/22 caps cyclobenzaprine 5 mg tablet 5 mg PO TID PRN muscle spasm #30 11/11/22 tabs Allergies Allergy/AdvReac Type Severity Reaction Status Date / Time adhesive tape [ADHESIVE TAPE] Allergy Intermediate Blistered Verified 10/25/22 11:24 skin Anesthetics - Amide Type - Allergy Unknown extremly Verified 10/25/22 11:24 Select A sensitive [ANESTHETICS - AMIDE TYPE] to anesthetics Anesthetics - Ernst Type- Allergy Unknown extremely Verified 10/25/22 11:24 Parabens sensitive [ANESTHETICS - ERNST TYPE] to anesthetics Review of Systems <Julienne Pa PA-C - Last Filed: 11/09/22 20:04> Review of Systems ROS Unobtainable: All systems reviewed & are unremarkable except as noted in HPI and below Constitutional Constitutional: Denies chills, Denies fatigue, Denies fever(s), Denies frequent falls, Denies lethargy and Denies weakness Eyes Eyes: Denies change in vision, Denies eye discharge, Denies irritation and Denies loss of vision ENT Ears, Nose, Mouth, and Throat: Denies change in voice, Denies dizziness, Denies neck pain, Denies sore throat and Denies throat swelling Cardiovascular Cardiovascular: Denies chest pain, Denies irregular heart rhythm, Denies lightheadedness, Denies palpitations, Denies dyspnea, Denies dyspnea on exertion and Denies orthopnea Respiratory Respiratory: Denies cough, Denies dyspnea, Denies dyspnea on exertion and Denies wheezing Gastrointestinal Gastrointestinal: Denies abdominal pain, Denies change in bowel habits, Denies diarrhea, Denies nausea and Denies vomiting Genitourinary Genitourinary: Denies hematuria, Denies flank pain, Denies urinary incontinence and Denies urinary urgency Musculoskeletal Musculoskeletal: Denies back pain, Denies muscle weakness, Denies neck pain, Denies numbness and Denies tingling Integumentary/Breasts Skin/Breast: Reports bleeding lesions, Denies pruritus, Denies erythema, Denies rash and Reports wounds Neurologic Neurologic: Denies behavioral changes, Denies confusion, Denies dizziness, Denies frequent falls, Denies loss of vision, Denies numbness, Denies tingling and Denies weakness Psychiatric Psychiatric: Denies anxiety, Denies behavioral changes, Denies confusion, Denies depression, Denies homicidal ideation and Denies suicidal ideation Endocrine Endocrine: Denies fatigue, Denies flushing and Denies palpitations Hematologic/Lymphatic Hematologic/Lymphatic: Denies easy bruising Allergic/Immunologic Allergic/Immunologic: Denies urticaria, Denies throat swelling and Denies wheezing Patient History <Julienne Pa PA-C - Last Filed: 11/09/22 20:04> Medical History Atrial fibrillation BPH (benign prostatic hyperplasia) Carotid artery stenosis Cervical spondylosis (~2013) Coronary artery disease Dyslipidemia (09/12/18) Essential hypertension (05/05/15) Gastric outlet obstruction Herniated disc (~2013) 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) Hx MRSA infection (Unknown) LBBB (left bundle branch block) (12/26/19) Neck pain Neoplasm of uncertain behavior of skin Nephrolithiasis Parkinsonism Shoulder pain, left Squamous cell carcinoma (Unknown) Symptomatic bradycardia (01/07/16) Surgical History History of carpal tunnel surgery (1989) History of total shoulder replacement Hx of cataract extraction (2015) Hx of laminectomy (~1971) Hx of shoulder replacement (~2010) S/P cervical discectomy (10/2013) S/P coronary artery stent placement S/P placement of cardiac pacemaker (08/2015) Status post lumbar spine surgery for decompression of spinal cord (~1992) Family History Father Heart disease Mother Heart disease Diabetes mellitus Social History marital status: household members: spouse lives independently: Yes 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 Smoking Status: Never smoker alcohol intake: current Smoking Status: Never smoker alcohol intake frequency: 0-2 drinks per day Substance Use Type: does not use Exam <Julienne Pa PA-C - Last Filed: 11/09/22 20:04> Narrative Exam Narrative: Const General:?cooperative, healthy appearing and comfortable [facility] Head:?normal to inspection Ears:?hearing grossly normal bilaterally Nose:?external nose normal Face and sinus:?normal facial exam and sinuses nontender Mouth:?oral mucosae normal Throat:?posterior oropharynx normal Eyes General:?appearance normal, both eyes and all related structures Neck Neck:?normal visual inspection and no lymphadenopathy noted Resp Effort & Inspection:?normal respiratory effort Auscultation:?clear to auscultation bilaterally Cardio Rate:?regular rate Rhythm:?regular rhythm Integumentary There are multiple wounds on the left forearm and left dorsal hand. Bleeding is well controlled with some Band-Aids applied. There are no signs of infection. There is full range of motion. Strength and sensation is intact. Patient is neurovascularly intact. Neuro General:?patient alert, patient awake and patient oriented x3 Initial Vital Signs Initial Vital Signs: Vital Signs Temperature 98.3 F 11/09/22 11:54 Pulse Rate 60 11/09/22 11:54 Respiratory Rate 16 11/09/22 11:54 Blood Pressure 147/88 H 11/09/22 11:54 Pulse Oximetry 98 11/09/22 11:54 Oxygen Delivery Method Room Air 11/09/22 11:54 <DO Neida De La Rosa Last Filed: 11/12/22 05:52> Initial Vital Signs Initial Vital Signs: Vital Signs Temperature 98.3 F 11/09/22 11:54 Pulse Rate 60 11/09/22 11:54 Respiratory Rate 16 11/09/22 11:54 Blood Pressure 147/88 H 11/09/22 11:54 Pulse Oximetry 98 11/09/22 11:54 Oxygen Delivery Method Room Air 11/09/22 11:54 Course <DARELL Sanchez Last Filed: 11/09/22 20:04> Vital Signs Vital signs: Vital Signs - 8 hr 11/09/22 14:31 Pulse Rate 60 Respiratory Rate 16 Blood Pressure 145/84 H Pulse Oximetry 99 Oxygen Delivery Method Room Air <DO Neida De La Rosa Last Filed: 11/12/22 05:52> Vital Signs Vital signs: Vital Signs - 8 hr 11/09/22 14:31 Pulse Rate 60 Respiratory Rate 16 Blood Pressure 145/84 H Pulse Oximetry 99 Oxygen Delivery Method Room Air MDM - Skin/Abscess/Foreign Bdy <Julienne Pa PA-C - Last Filed: 11/09/22 20:04> MDM Narrative Medical decision making narrative: 77-year-old male on warfarin sent to the ED for evaluation of oozing wounds on the left forearm and hand. Physical exam is reassuring, the wounds appear not to be oozing, the Band-Aids are doing the job applying pressure. There are no signs of infection. Patient has good strength and sensation and full range of motion. Patient is neurovascularly intact. Patient agrees to monitor his wounds, apply pressure with a Band-Aids and follow-up with his doctor regarding his INR. ED return precautions were discussed with patient. Patient verbalized understanding. Medical records reviewed: Yes Discharge Plan Departure Patient Disposition: Home Clinical Impression: Bleeding from wound Instructions: Minor Wounds (Alternative Therapy) Activity Restrictions/Additional Instructions: You were evaluated in the ED today for some oozing wounds on your left forearm and hand. On exam, it is reassuring that the wounds are healing and not continuing to ooze. You may continue to keep the Band-Aids on for pressure. Please follow the instructions to withhold warfarin doses for the next 2 nights as per your doctor's recommendation. Return to the ED if the wounds continue to ooze uncontrollably despite putting on the Band-Aids for pressure. Please also look for signs of infection including worsening pain, redness, warmth, swelling, discharge and return to the ED if you note any signs of infection. Please follow-up with your PCP as soon as possible. Prescriptions: No Action clopidogrel 75 mg tablet 75 mg PO DAILY levetiracetam [Keppra] 500 mg tablet 500 mg PO BID finasteride 5 mg tablet 5 mg PO QDAY Qty: 90 3RF carbidopa-levodopa 25-100 mg tablet 1 tab PO TID tamsulosin 0.4 mg capsule 0.4 mg PO DAILY Qty: 90 3RF metoprolol tartrate 50 mg tablet 50 mg PO BID Qty: 180 3RF tramadol 50 mg tablet 50 mg PO 5XD PRN (Reason: pain) Qty: 150 3RF Rx Instructions: EXEMPT atorvastatin 40 mg tablet 40 mg PO DAILY Qty: 90 1RF warfarin 4 mg tablet See Rx Instructions .ROUTE .COMPLEX Qty: 90 2RF Dose Instruction: TAKE 1 TABLET BY MOUTH DAILY TUESDAY AND TUESDAY. 2MG ALL OTHER DAYS. Rx Instructions: TAKE 1 TABLET BY MOUTH DAILY TUESDAY AND TUESDAY. 2MG ALL OTHER DAYS. gabapentin 300 mg capsule 300 mg PO BEDTIME PRN (Reason: Sciatica) Qty: 90 3RF prednisone 5 mg tablet 5 mg PO DAILY probenecid-colchicine 500-0.5 mg tablet 1 tab PO BID cyclobenzaprine 5 mg tablet 5 mg PO TID PRN (Reason: muscle spasm) Qty: 30 0RF potassium chloride 10 mEq capsule, extended release 10 meq PO nitroglycerin 0.4 mg tablet, sublingual 0.4 mg sublingual Q5M PRN Rx Instructions: do not exceed 3 doses per episode leflunomide 20 mg tablet 20 mg PO DAILY Referrals: Deep Dao MD [Primary Care Provider] - Stand Alone Forms: Patient Portal/API <Claudia Ellis DO - Last Filed: 11/12/22 05:52> Cosign ED Attending Cospaytonature Attestation: I was immediately available in the department for consultation. Documentation has been reviewed.
== END 2022-11-09 14:32 | disposition home or self-care (01) ==
PROVIDERS: Emergency Provider Student in an Organized Health Care Education/Training Program; Family Provider Student in an Organized Health Care Education/Training Program; PCP Student in an Organized Health Care Education/Training Program
DX: S51.802A Unspecified open wound of left forearm, initial encounter (principal); S61.402A Unspecified open wound of left hand, initial encounter; X58.XXXA Exposure to other specified factors, initial encounter
CPT/HCPCS: 99281

== ENCOUNTER 2023-03-10 18:24 | Emergency (ER) | payer MEDICARE, OTHER, SELFPAY ==
[2023-03-10] VITALS (23 sets, daily range): BP systolic 54–150; BP diastolic 38–82; PULSE 83–122; RESP 20–51; TEMP 36.6; O2SAT 85–98; BMI 23.8
--- NOTE | 2023-03-10 18:40 | DI.CT.S_ITS ---
PROCEDURE: CT ANGIO CHEST ABDOMEN PELVIS INDICATIONS: Chest pain, abdominal pain, hypotension TECHNIQUE: Precontrast 5 mm thick sections acquired from the lung apices to the iliac crests. After the administration of intravenous contrast, 2.5 mm thick sections again acquired from the lung apices to the iliac crests. Maximum intensity projection (MIP) oblique sagittal and coronal reformats were then acquired. For radiation dose reduction, the following was used: automated exposure control. COMPARISON: None. FINDINGS: Image quality: Excellent. 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 CHEST: Lungs and pleura: No acute airspace opacities. No pleural effusions or pneumothorax. Central and peripheral airways are patent and normal in caliber. Mediastinum: Hyperattenuating pericardial effusion, concerning for hemopericardium. Mild convex appearance of the pericardial fat, and straightening of the right ventricle wall. Normal convexity of the left ventricle wall. Heart size is within normal limits. Three-vessel coronary calcifications with stents. Reflux of contrast into the IVC. Bones and chest wall: No axillary adenopathy by size criteria. Thyroid gland is within normal limits . No suspicious bony lesions. No vertebral body compression fractures. ABDOMEN: Vasculature: Celiac trunk and mesenteric arteries are patent. 50 percent stenosis of the SMA origin. Thin intimal flap within the common hepatic artery (series 7, image 135). Renal arteries are also patent. Solid organs: Obstructing stones in the left mid ureter, largest measuring 1 centimeter (1431 Hounsfield unit) and 2nd largest measuring 0.7 centimeters (807 Hounsfield unit). Moderate upstream hydronephrosis. Large burden of bilateral nonobstructing stones additionally present. Remaining solid organs are within normal limits. Peritoneum and bowel: No free fluid or air. Bowel loops are normal in caliber and wall thickness. Nodes and vessels: No retroperitoneal or mesenteric adenopathy by size criteria. Inferior vena cava is normal in morphology. Miscellaneous: No ventral hernias. PELVIS: Genitourinary: Bladder wall thickness is normal. Miscellaneous: No inguinal hernias or adenopathy. No ventral hernias. Bones: No suspicious bony lesions. No vertebral body compression fractures. Surgical fusion of the lumbar spine, and multilevel laminectomy. 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 The false lumen does not feed any major vessel. Small but hyperattenuating pericardial effusion, concerning for hemopericardium. Straightening of the right ventricle wall may indicate impending cardiac tamponade. Additional short segment dissection flap (unrelated) in the common hepatic artery. Obstructing left-sided renal stones, largest measuring 1 centimeter. This results in moderate hydronephrosis. Findings discussed with Dr. Campa at time of dictation. Dictated by: Rowdy Kurtz M.D. on 03/10/2023 at 19:20 Approved by: Rowdy Kurtz M.D. on 03/10/2023 at 19:30
--- NOTE | 2023-03-10 18:41 | ED.GENADULT ---
HPI - General Adult General Chief complaint: Shortness of Breath/Dyspnea Stated complaint: SOB x 5hrs Time Seen by Provider: 03/10/23 18:39 Source: patient and EMS Mode of arrival: EMS Limitations: no limitations History of Present Illness HPI narrative: Patient is a 77-year-old male. Does have a history of Parkinson's disease. Has a pacemaker in place. Is anticoagulated on Coumadin. Was brought in by EMS for evaluation of shortness of breath. Patient states that this afternoon he was eating a [place] shetty and shortly afterwards developed a sudden onset of chest pain and shortness of breath and belly pain and back pain. No skin rashes. He does state that he is having some problems breathing. Has never had a reaction like this in the past to any food items. He was found to be hypotensive by EMS. Was given fluids and this was reported to increase his blood pressure. He denies any trauma. Has periodically been on oxygen by EMS and here in the ER for saturations in the low 90s and his shortness of breath. Related Data Home Medications Medication Instructions Recorded Confirmed clopidogrel 75 mg tablet 75 mg PO DAILY 01/12/18 12/14/22 levetiracetam 500 mg tablet 500 mg PO BID 06/15/19 12/14/22 (Keppra) prednisone 5 mg tablet 5 mg PO DAILY 01/18/20 12/14/22 probenecid 500 mg-colchicine 0.5 1 tab PO BID 10/27/20 12/14/22 mg tablet carbidopa 25 mg-levodopa 100 mg 1 tab PO TID 02/27/21 12/14/22 tablet leflunomide 20 mg tablet 20 mg PO DAILY 09/27/22 12/14/22 nitroglycerin 0.4 mg sublingual 0.4 mg sublingual Q5M PRN 09/27/22 12/14/22 tablet potassium chloride 10 mEq 10 meq PO 09/27/22 12/14/22 capsule,extended release Previous Rx's Medication Instructions Recorded finasteride 5 mg tablet 5 mg PO QDAY #90 tabs 10/24/19 tamsulosin 0.4 mg capsule 0.4 mg PO DAILY #90 caps 08/19/21 metoprolol tartrate 50 mg tablet 50 mg PO BID #180 tabs 01/21/22 warfarin 4 mg tablet See Rx Instructions .Route 09/02/22 .COMPLEX #90 tabs gabapentin 300 mg capsule 300 mg PO BEDTIME PRN Sciatica #90 09/09/22 caps cyclobenzaprine 5 mg tablet 5 mg PO TID PRN muscle spasm #30 11/11/22 tabs tramadol 50 mg tablet 50 mg PO 5XD PRN pain #150 tabs 11/30/22 atorvastatin 40 mg tablet 40 mg PO DAILY #60 tabs 02/14/23 Allergies Allergy/AdvReac Type Severity Reaction Status Date / Time adhesive tape [ADHESIVE TAPE] Allergy Intermediate Blistered Verified 12/14/22 12:54 skin Anesthetics - Amide Type - Allergy Unknown extremly Verified 12/14/22 12:54 Select A sensitive [ANESTHETICS - AMIDE TYPE] to anesthetics Anesthetics - Ernst Type- Allergy Unknown extremely Verified 12/14/22 12:54 Parabens sensitive [ANESTHETICS - ERNST TYPE] to anesthetics Review of Systems Review of Systems ROS Unobtainable: All systems reviewed & are unremarkable except as noted in HPI and below Patient History Medical History Atrial fibrillation BPH (benign prostatic hyperplasia) Carotid artery stenosis Cervical spondylosis (~2013) Coronary artery disease Dyslipidemia (09/12/18) Essential hypertension (05/05/15) Gastric outlet obstruction Herniated disc (~2013) 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) Hx MRSA infection (Unknown) LBBB (left bundle branch block) (12/26/19) Neck pain Neoplasm of uncertain behavior of skin Nephrolithiasis LINA (obstructive sleep apnea) Parkinson disease Parkinsonism Shoulder pain, left Squamous cell carcinoma (Unknown) Symptomatic bradycardia (01/07/16) Surgical History History of carpal tunnel surgery (1989) History of total shoulder replacement Hx of cataract extraction (2015) Hx of laminectomy (~1971) Hx of shoulder replacement (~2010) S/P cervical discectomy (10/2013) S/P coronary artery stent placement S/P placement of cardiac pacemaker (08/2015) Status post lumbar spine surgery for decompression of spinal cord (~1992) Family History Father Heart disease Mother Heart disease Diabetes mellitus Social History marital status: household members: spouse lives independently: Yes 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 Smoking Status: Never smoker alcohol intake: current Smoking Status: Never smoker alcohol intake frequency: 0-2 drinks per day Substance Use Type: does not use Exam Initial Vital Signs Initial Vital Signs: Vital Signs Pulse Rate 122 H 03/10/23 18:29 Respiratory Rate 36 H 03/10/23 18:29 Const General: cooperative, in distress, No combative, diaphoretic and ill appearing HENMT Head: normal to inspection and normocephalic Resp Effort & Inspection: normal respiratory effort Auscultation: clear to auscultation bilaterally Cardio Rate: tachycardic Rhythm: regular rhythm Heart Sounds: no murmurs GI Inspection: normal to inspection Skin Other: Well-healed scar on left side of abdomen from prior back surgery Neuro General: patient alert, patient awake, patient oriented x3 and moves all extremities Speech: speech normal Extrem General: No edema Procedures Misc Procedure Name of Procedure: Pericardiocentesis Technique/Description of procedure performed: Skin was anesthetized with 2 cc of 1% lidocaine without epinephrine. Ultrasound was used. Needle was inserted in the subxiphoid location and advanced until blood return. Returned approximately 125-150 cc of blood. Patient tolerated procedure: Well Scores GCS Howard coma scale eye opening: Spontaneous Howard coma scale verbal response: Orientated [place] coma scale motor response: Obey commands Howard coma scale total score: 15 Course Orders Ordered: ED Orders 03/10/23 18:35 PTT Partial Thromboplastin Phill Stat Prothrombin Time INR Stat 03/10/23 18:39 Blood Culture Stat Complete Blood Count AUTO DIFF Stat Troponin & CK Cardiac Panel Stat 03/10/23 18:40 CT angio chest abdomen pelvis Stat EKG-12 Lead Stat 03/10/23 19:28 Fresh Frozen Plasma Stat Packed Cells Stat Type and Screen Stat Discontinued Medications Fentanyl (Fentanyl 100 Mcg/2 Ml Inj) 25 mcg IV Q15MIN PRN PRN Reason: Pain, Severe (7-10) Last Admin: 03/10/23 20:34 Dose: 25 mcg Documented By: Admin: 03/10/23 20:19 Dose: 25 mcg Documented By: FABIOLA Sodium Chloride (Normal Saline 0.9%) 1,000 mls @ 1,000 mls/hr IV BOLUS ONE Stop: 03/10/23 19:38 Last Infusion: 03/10/23 20:05 Dose: 0 mls/hr Documented By: Admin: 03/10/23 19:28 Dose: 1,000 mls/hr Documented By: FABIOLA Esmolol HCl (Brevibloc) 2.5 gm in 250 mls @ 0 mls/hr IV TITRATE BRANDIE; Protocol Esmolol HCl (Brevibloc) 2.5 gm in 250 mls @ 22.453 mls/hr IV TITRATE BRANDIE; Protocol Last Titration: 03/10/23 20:43 Dose: 50 mcg/kg/min, 22.453 mls/hr Documented By: Admin: 03/10/23 20:02 Dose: 50 mcg/kg/min, 22.453 mls/hr Documented By: FABIOLA Phytonadione 10 mg/ Sodium (Chloride) 101 mls @ 202 mls/hr IV NOW ONE Stop: 03/10/23 19:33 Last Infusion: 03/10/23 19:46 Dose: 0 mls/hr Documented By: Admin: 03/10/23 19:39 Dose: 202 mls/hr Documented By: FABIOLA Prothrombin Complex Concent ( Human) 2,000 unit/Miscellaneous 80 mls @ 538.87 mls/hr IV NOW ONE Stop: 03/10/23 20:38 Morphine Sulfate (Morphine 4 Mg/Ml Inj) 4 mg IV NOW ONE Stop: 03/10/23 18:49 Last Admin: 03/10/23 19:28 Dose: 4 mg Documented By: FABIOLA Morphine Sulfate (Morphine 4 Mg/Ml Inj) 4 mg IV NOW ONE Stop: 03/10/23 19:56 Last Admin: 03/10/23 19:59 Dose: 4 mg Documented By: FABIOLA Vital Signs Vital signs: Vital Signs - 8 hr 03/10/23 19:40 03/10/23 19:45 03/10/23 19:53 Temperature Pulse Rate 105 H 105 H 101 H Respiratory Rate 26 H 24 28 H Blood Pressure Pulse Oximetry 87 L Oxygen Delivery Method Non -Rebreather Oxygen Flow Rate 15 03/10/23 18:50 03/10/23 19:00 03/10/23 18:29 Temperature 97.8 F 97.9 F Pulse Rate 122 H 120 H 122 H Respiratory Rate 45 H 35 H 36 H Blood Pressure 54/38 L Pulse Oximetry 88 L 90 L Oxygen Delivery Method Non -Rebreather Non -Rebreather Oxygen Flow Rate 15 15 03/10/23 18:30 03/10/23 18:31 03/10/23 18:31 Temperature Pulse Rate 122 H 122 H Respiratory Rate 45 H 44 H Blood Pressure 54/38 L Pulse Oximetry 88 L Oxygen Delivery Method Oxygen Flow Rate 03/10/23 18:42 03/10/23 18:42 03/10/23 19:06 Temperature Pulse Rate 117 H 116 H Respiratory Rate 39 H 39 H Blood Pressure 105/77 Pulse Oximetry 98 Oxygen Delivery Method Oxygen Flow Rate 03/10/23 19:21 03/10/23 19:21 03/10/23 19:30 Temperature Pulse Rate 112 H 108 H Respiratory Rate 42 H Blood Pressure 124/82 Pulse Oximetry 85 L Oxygen Delivery Method Oxygen Flow Rate 03/10/23 19:56 03/10/23 19:56 03/10/23 20:00 Temperature Pulse Rate 101 H Respiratory Rate Blood Pressure 110/53 L 150/79 H Pulse Oximetry 96 Oxygen Delivery Method Oxygen Flow Rate 03/10/23 20:00 03/10/23 19:58 03/10/23 20:02 Temperature Pulse Rate 103 H 83 83 Respiratory Rate 51 H 21 23 Blood Pressure 150/79 H Pulse Oximetry 92 Oxygen Delivery Method Oxygen Flow Rate 03/10/23 20:10 03/10/23 20:26 03/10/23 20:08 Temperature Pulse Rate 83 84 Respiratory Rate 27 H 24 22 Blood Pressure 90/53 L 66/45 L Pulse Oximetry 95 Oxygen Delivery Method Oxygen Flow Rate 03/10/23 20:08 03/10/23 20:10 03/10/23 20:10 Temperature Pulse Rate 83 Respiratory Rate 20 Blood Pressure 84/46 L 90/53 L Pulse Oximetry 95 Oxygen Delivery Method Oxygen Flow Rate 03/10/23 20:16 03/10/23 20:16 03/10/23 20:21 Temperature Pulse Rate 87 Respiratory Rate 21 Blood Pressure 74/42 L 82/43 L Pulse Oximetry 96 Oxygen Delivery Method Oxygen Flow Rate 03/10/23 20:21 03/10/23 20:26 03/10/23 20:26 Temperature Pulse Rate 88 Respiratory Rate 22 Blood Pressure 65/45 L Pulse Oximetry 93 94 Oxygen Delivery Method Oxygen Flow Rate 03/10/23 20:29 03/10/23 20:29 03/10/23 20:30 Temperature Pulse Rate Respiratory Rate Blood Pressure 70/51 L 67/51 L Pulse Oximetry 90 L Oxygen Delivery Method Oxygen Flow Rate 03/10/23 20:30 Temperature Pulse Rate Respiratory Rate Blood Pressure Pulse Oximetry 91 Oxygen Delivery Method Oxygen Flow Rate Medical Decision Making Medical Records Medical records reviewed: Yes I reviewed the patient's medical records. Lab Data Lab results reviewed: Yes I reviewed the patient's lab results. 03/10/23 18:39 03/10/23 18:39 Labs: Lab Results 03/10/23 03/10/23 03/10/23 Range/Units 18:35 18:39 18:39 WBC 10.9 (4.5-11.0) X10^3/uL RBC 4.09 L (4.5-5.9) X10^6/uL Hgb 13.5 (13.5-17.5) g/dL Hct 39.5 L (41-53) % MCV 96.7 (80-100) fL MCH 32.9 (26-34) PG MCHC 34.1 (30-36) % RDW 14.6 (11.6-14.8) % Plt Count 170 (150-400) X10^3/uL Neut % (Auto) 60.7 (50-75) % Lymph % (Auto) 26.6 (25-40) % Barren % (Auto) 8.8 (3-14) % Eos % (Auto) 3.3 (2-4) % Baso % (Auto) 0.6 (0-2) % Neut # (Auto) 6600 (9988-3037) /uL Lymph # (Auto) 2900 (1126-4456) /uL Barren # (Auto) 1000 H (0-900) /uL Eos # (Auto) 400 (0-450) /uL Baso # (Auto) 100 (0-100) /uL PT 62.9 H (10.1-12.7) SECONDS INR 5.4 H* (0.9-1.3) APTT 50 H (26-36) SECONDS Sodium Cancelled Potassium Cancelled Chloride Cancelled Carbon Dioxide Cancelled BUN Cancelled Creatinine Cancelled Estimated GFR Cancelled BUN/Creatinine Ratio Cancelled Glucose Cancelled Calcium Cancelled Magnesium Cancelled Total Bilirubin Cancelled AST Cancelled ALT Cancelled Alkaline Phosphatase Cancelled Total Creatine Kinase (55-170) U/L Troponin I (0.01-0.034) ng/mL Total Protein Cancelled Albumin Cancelled Globulin Cancelled Albumin/Globulin Ratio Cancelled Lipase Cancelled Ethyl Alcohol Cancelled Blood Type Antibody Screen Crossmatch 03/10/23 03/10/23 03/10/23 Range/Units 18:39 19:28 19:28 WBC (4.5-11.0) X10^3/uL RBC (4.5-5.9) X10^6/uL Hgb (13.5-17.5) g/dL Hct (41-53) % MCV (80-100) fL MCH (26-34) PG MCHC (30-36) % RDW (11.6-14.8) % Plt Count (150-400) X10^3/uL Neut % (Auto) (50-75) % Lymph % (Auto) (25-40) % Barren % (Auto) (3-14) % Eos % (Auto) (2-4) % Baso % (Auto) (0-2) % Neut # (Auto) (2649-7010) /uL Lymph # (Auto) (4040-0144) /uL Barren # (Auto) (0-900) /uL Eos # (Auto) (0-450) /uL Baso # (Auto) (0-100) /uL PT (10.1-12.7) SECONDS INR (0.9-1.3) APTT (26-36) SECONDS Sodium Potassium Chloride Carbon Dioxide BUN Creatinine Estimated GFR BUN/Creatinine Ratio Glucose Calcium Magnesium Total Bilirubin AST ALT Alkaline Phosphatase Total Creatine Kinase 108 (55-170) U/L Troponin I 0.014 (0.01-0.034) ng/mL Total Protein Albumin Globulin Albumin/Globulin Ratio Lipase Ethyl Alcohol Blood Type O Negative Cancelled Antibody Screen Negative Cancelled Crossmatch See Detail See Detail Imaging Data CT chest/abd/pelvis: Radiologist's Impression: PROCEDURE:? CT ANGIO CHEST ABDOMEN PELVIS ? INDICATIONS:? Chest pain, abdominal pain, hypotension ? TECHNIQUE:? Precontrast 5 mm thick sections acquired from the lung apices to the iliac crests.? After the administration of intravenous contrast, 2.5 mm thick sections again acquired from the lung apices to the iliac crests.? Maximum intensity projection (MIP) oblique sagittal and coronal reformats were then acquired.? For radiation dose reduction, the following was used:? automated exposure control.? ? COMPARISON:? None. ? FINDINGS:? Image quality:? Excellent.? ? AORTA:? There is a small dissection flap originating in the ascending aorta (series 6, image 58), terminating in the aortic arch (series 6, image 46). ? CHEST:? Lungs and pleura:? No acute airspace opacities.? No pleural effusions or pneumothorax.? Central and peripheral airways are patent and normal in caliber.? ? Mediastinum:? Hyperattenuating pericardial effusion, concerning for hemopericardium.? Mild convex appearance of the pericardial fat, and straightening of the right ventricle wall.? Normal convexity of the left ventricle wall.? Heart size is within normal limits.? Three-vessel coronary calcifications with stents.? Reflux of contrast into the IVC. ? Bones and chest wall:? No axillary adenopathy by size criteria.? Thyroid gland is within normal limits .? No suspicious bony lesions.? No vertebral body compression fractures.? ? ? ABDOMEN:? Vasculature:? Celiac trunk and mesenteric arteries are patent.? 50 percent stenosis of the SMA origin.? Thin intimal flap within the common hepatic artery (series 7, image 135).? Renal arteries are also patent.? ? Solid organs:? Obstructing stones in the left mid ureter, largest measuring 1 centimeter (1431 Hounsfield unit) and 2nd largest measuring 0.7 centimeters (807 Hounsfield unit).? Moderate upstream hydronephrosis.? Large burden of bilateral nonobstructing stones additionally present.? Remaining solid organs are within normal limits. ? Peritoneum and bowel:? No free fluid or air.? Bowel loops are normal in caliber and wall thickness.? ? Nodes and vessels:? No retroperitoneal or mesenteric adenopathy by size criteria.? Inferior vena cava is normal in morphology.? ? Miscellaneous:? No ventral hernias.? ? ? PELVIS:? Genitourinary:? Bladder wall thickness is normal.? ? Miscellaneous:? No inguinal hernias or adenopathy.? No ventral hernias.? ? Bones:? No suspicious bony lesions.? No vertebral body compression fractures.? Surgical fusion of the lumbar spine, and multilevel laminectomy. ? ? IMPRESSION:? Short type a dissection flap within the ascending aorta and terminating in the aortic arch.? The false lumen does not feed any major vessel. ? Small but hyperattenuating pericardial effusion, concerning for hemopericardium.? Straightening of the right ventricle wall may indicate impending cardiac tamponade. ? Additional short segment dissection flap (unrelated) in the common hepatic artery. ? Obstructing left-sided renal stones, largest measuring 1 centimeter.? This results in moderate hydronephrosis. ? Findings discussed with Dr. Campa at time of dictation. ECG Data Attestation: I personally reviewed and interpreted this ECG as follows: Interpretation: Sinus tachycardia Ventricular rate 121 Normal axis Occasional PVC No ST T wave changes MDM Narrative Medical decision making narrative: Patient arrives diaphoretic and tachycardic and hypotensive. Initially considered whether or not this was an anaphylactic reaction given it started right after he ate a [place]ian shetty however he has not had any vomiting and there are no skin rashes. The initial blood pressure we were able to get here in the ER was a systolic of 110. Given his symptoms to include his chest in his abdomen a CT scan was performed. It did appear that he had a large pericardial effusion on the CT scan. I did discuss the CT scan findings with the radiologist. It does appear that he is has a type a aortic dissection. After pain medication as his heart rate did improve somewhat however I received a call back from Radiology stating that there was concern about cardiac tamponade given the appearance of the right ventricle. Because of this and because of his vital signs of pericardiocentesis was performed. Was able to remove approximately 125-150 cc of blood. Afterwards his heart rate did improve and his blood pressure improved as well. Given the nature of his pathology he was started on esmolol. He was also given 2 units of packed red blood cells and FFP. He is on Coumadin. There was a delay at getting his chemistries and his INR back due to the hemolyzed nature of the blood sample. He was given vitamin K despite not having an INR resulted. I did inform the patient of his pathology. I did inform him of the need to transfer. I discussed the case with Dr. Thomas with Cardiothoracic surgery at the [facility] who accepts the patient for transfer. Patient is currently stable for transport. Will transport by [facility]. Critical Care Time Critical Care Time Critical Care Time: Yes Total Critical Care Time: 45 Attestation: The high probability of a clinically significant, sudden or life threatening deterioration of the [cardiovascular] system(s) required my full and direct attention, intervention and personal management. The aggregate critical care time was [45] minutes. This time is in addition to time spent performing reported procedures but includes the following: [x] Data Review and interpretation x Patient assessment and monitoring of vital signs [x] Documentation [x] Medication orders and management Discharge Plan Departure Patient Disposition: [facility] Clinical Impression: Aortic dissection, Anticoagulated on warfarin Prescriptions: No Action clopidogrel 75 mg tablet 75 mg PO DAILY levetiracetam [Keppra] 500 mg tablet 500 mg PO BID finasteride 5 mg tablet 5 mg PO QDAY Qty: 90 3RF carbidopa-levodopa 25-100 mg tablet 1 tab PO TID tamsulosin 0.4 mg capsule 0.4 mg PO DAILY Qty: 90 3RF metoprolol tartrate 50 mg tablet 50 mg PO BID Qty: 180 3RF warfarin 4 mg tablet See Rx Instructions .ROUTE .COMPLEX Qty: 90 2RF Dose Instruction: TAKE 1 TABLET BY MOUTH DAILY TUESDAY AND TUESDAY. 2MG ALL OTHER DAYS. Rx Instructions: TAKE 1 TABLET BY MOUTH DAILY TUESDAY AND TUESDAY. 2MG ALL OTHER DAYS. gabapentin 300 mg capsule 300 mg PO BEDTIME PRN (Reason: Sciatica) Qty: 90 3RF tramadol 50 mg tablet 50 mg PO 5XD PRN (Reason: pain) Qty: 150 3RF Rx Instructions: EXEMPT atorvastatin 40 mg tablet 40 mg PO DAILY Qty: 60 0RF Rx Instructions: DUE FOR LABS 02/14/23 prednisone 5 mg tablet 5 mg PO DAILY probenecid-colchicine 500-0.5 mg tablet 1 tab PO BID cyclobenzaprine 5 mg tablet 5 mg PO TID PRN (Reason: muscle spasm) Qty: 30 0RF potassium chloride 10 mEq capsule, extended release 10 meq PO nitroglycerin 0.4 mg tablet, sublingual 0.4 mg sublingual Q5M PRN Rx Instructions: do not exceed 3 doses per episode leflunomide 20 mg tablet 20 mg PO DAILY Referrals: Felicia Leal DO [Primary Care Provider] -
[2023-03-10 18:51] LABS: Add Manual Diff / Slide Review NO; Basophils Absolute Auto 100 /uL (0-100); Basophils Percent Auto 0.6 % (0-2); Eosinophils Absolute Auto 400 /uL (0-450); Eosinophils Percent Auto 3.3 % (2-4); Hematocrit 39.5 % (41-53); Hemoglobin 13.5 g/dL (13.5-17.5); Lymphocytes Absolute Auto 2900 /uL (1100-4500); Lymphocytes Percent Auto 26.6 % (25-40); Mean Corpuscular HGB Conc 34.1 % (30-36); Mean Corpuscular Hemoglobin 32.9 PG (26-34); Mean Corpuscular Volume 96.7 fL (80-100); Monocytes Absolute Auto 1000 /uL (0-900); Monocytes Percent Auto 8.8 % (3-14); Neutrophils Absolute Auto 6600 /uL (1500-7000); Neutrophils Percent Auto 60.7 % (50-75); Platelet Count 170 X10^3/uL (150-400); Red Blood Cell Count 4.09 X10^6/uL (4.5-5.9); Red Cell Distribution Width 14.6 % (11.6-14.8); White Blood Cell Count 10.9 X10^3/uL (4.5-11.0)
[2023-03-10 19:08] LABS: Creatine Kinase 108 U/L (55-170)
--- NOTE | 2023-03-10 19:10 | PC.NURSE ---
This RN to meet patient in CT with LOUISA De Guzman for handoff. Patient on CT table, c/o of sever chest pain. Dr. Pichardo is reading room and requested by quality control tech raw materials. 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 At 1920 patient brought to room ED6, manual BP reading 70/[address] Campa notified of BP and patient's distress. Patient on 15L non-rebreather O2 88% via pulse oximetry.
[2023-03-10 19:19] LABS: Troponin I 0.014 ng/mL (0.01-0.034)
[2023-03-10] MEDS: SODIUM CHLORIDE 0.9% 1,000 ML 1000 ML IV (19:28)
[2023-03-10] MEDS: MORPHINE 4 MG/ML INJ IV ×2 (19:28→19:59)
[2023-03-10] MEDS: PHYTONADIONE (VIT K1) 10 MG in SODIUM CHLORIDE 0.9% 100 ML 202 MG IV (19:39)
--- NOTE | 2023-03-10 19:40 | PC.NURSE ---
Multiple RN's, charge poster, Dr. Campa and Dr. Pichardo at bedside preparing to administer blood products and perform pericardiocentesis.
--- NOTE | 2023-03-10 19:43 | TAR.TRANSNT ---
RN unable to obtain BP, multiple attempts on bilateral upper extremities, and lower extremities. Dr. Campa aware.
--- NOTE | 2023-03-10 19:47 | TAR.TRANSNT ---
Patient's vitals are unable to be obtained as ordered by blood transfusion protocol and Dr. Campa performing sterile procedure. Vitals that were obtained are documented in chart.
--- NOTE | 2023-03-10 20:00 | PC.NURSE ---
LOUISA Donato administered bolus Dose from 2.5g/250mL bag @ a dose of 33.5mg as ordered per Esmolol protocol.
[2023-03-10] MEDS: ESMOLOL 2.5 GM/250 ML IV.SOLN IV (20:02)
[2023-03-10] MEDS: fentaNYL 100 MCG/2 ML INJ 25 MCG IV ×2 (20:19→20:34)
[2023-03-10 20:35] LABS: PTT Partial Thromboplastin Tim 50 SECONDS (26-36); Prothrombin Time 62.9 SECONDS (10.1-12.7)
[2023-03-10 20:37] LABS: INR 5.4 (0.9-1.3)
== END 2023-03-10 20:43 | disposition short-term general hospital (02) ==
PROVIDERS: Emergency Provider Emergency Medicine; Family Provider Student in an Organized Health Care Education/Training Program; PCP Family Medicine
DX: I71.00 Dissection of unspecified site of aorta (principal); R00.0 Tachycardia, unspecified; R07.9 Chest pain, unspecified; G20 Parkinson's disease; Z95.0 Presence of cardiac pacemaker; I95.9 Hypotension, unspecified; Z79.01 Long term (current) use of anticoagulants; Z79.899 Other long term (current) drug therapy
CPT/HCPCS: 33016; 36415; 36430; 71275; 74174; 82550; 84484; 85025; 85610; 85730; 86850; 86900; 86901; 86927; 87040; 93005; 93010; 96361; 96365; 96375; 96376; 99285; 99291; P9016; P9017; J2270; J3010; J3430